=== PATIENT | female | born 1960 | race Caucasian/White ===

== ENCOUNTER 2024-11-25 11:46 | Inpatient (IN) | payer OTHER ==
--- NOTE | 2024-11-25 12:05 | ED ---
SOB HPI - General Source: patient, RN notes reviewed Mode of arrival: wheelchair Limitations: no limitations <Rose Bruce - Last Filed: 11/25/24 12:03> - General Source: patient, RN notes reviewed Mode of arrival: wheelchair Limitations: no limitations <Harley Doss - Last Filed: 11/25/24 15:19> - General Chief Complaint: Shortness of Breath Stated Complaint: SOB Time Seen by Provider: 11/25/24 12:04 - History of Present Illness Initial Comments: Quick note: 64-year-old female presented to the ER for evaluation of shortness of breath. She states this has been ongoing for the past 2 weeks. Patient does not typically wear oxygen at home. Patient denies any chest pain, dizziness or lightheadedness. No fevers, peripheral edema or cough. (Rose Bruce) Patient is a 64-year-old female presenting to the emergency department with concerns with difficulty breathing. Onset of symptoms was 2 weeks ago. Patient was visiting the hospital and believes she caught something there. Patient is a smoker however stopped when her symptoms started 2 weeks ago. Patient does have cough with green sputum. No fever. (Harley Doss) - Related Data Allergies Allergy/AdvReac Type Severity Reaction Status Date / Time No Known Allergies Allergy Verified 11/25/24 11:52 Review of Systems ROS Other: All systems not noted in ROS Statement are negative. <Rose Bruce - Last Filed: 11/25/24 12:03> ROS Other: All systems not noted in ROS Statement are negative. Constitutional: Denies: fever, chills Eyes: Denies: eye pain ENT: Denies: ear pain Respiratory: Reports: as per HPI, cough, dyspnea Endocrine: Reports: fatigue Musculoskeletal: Denies: back pain Neurological: Denies: weakness <Harley Doss - Last Filed: 11/25/24 15:19> ROS Statement: Those systems with pertinent positive or pertinent negative responses have been documented in the HPI. Past Medical History Past Medical History: No Reported History History of Any Multi-Drug Resistant Organisms: None Reported Past Surgical History: No Surgical Hx Reported Past Psychological History: No Psychological Hx Reported Smoking Status: Former smoker Past Alcohol Use History: None Reported Past Drug Use History: Marijuana <Rose Bruce - Last Filed: 11/25/24 12:03> General Exam Limitations: no limitations <Rose Bruce - Last Filed: 11/25/24 12:03> Limitations: no limitations General appearance: alert Head exam: Present: normocephalic Eye exam: Present: normal appearance Neck exam: Present: normal inspection Respiratory exam: Present: wheezes, decreased breath sounds Cardiovascular Exam: Present: normal rhythm, tachycardia GI/Abdominal exam: Present: soft. Absent: tenderness Extremities exam: Present: normal inspection. Absent: pedal edema, calf t enderness Neurological exam: Present: alert Psychiatric exam: Present: normal affect, normal mood Skin exam: Present: normal color <Harley Doss - Last Filed: 11/25/24 15:19> - General Exam Comments Initial Comments: Visual Physical Exam Vital signs reviewed General: Well-appearing, nontoxic, Mild conversational dyspnea Head: Normocephalic, atraumatic Eyes: PERRLA, EOMI ENT: Airway patent Chest: Nonlabored breathing Skin: No visual rash, normal skin tone Neuro: Alert and oriented 3 Musculoskeletal: No gross abnormalities (Rose Bruce) Course Vital Signs 11/25/24 11/25/24 11/25/24 11:48 11:52 12:58 Temperature 97.7 F Pulse Rate 116 H 91 Respiratory 22 Rate Blood Pressure 133/84 O2 Sat by Pulse 86 L 94 L Oximetry 11/25/24 11/25/24 13:10 13:33 Temperature 97.7 F Pulse Rate 92 107 H Respiratory 20 Rate Blood Pressure 128/84 O2 Sat by Pulse 93 L Oximetry Medical Decision Making <Rose Bruce - Last Filed: 11/25/24 12:03> - Lab Data Result diagrams: 11/25/24 12:12 11/25/24 12:12 <Harley Doss - Last Filed: 11/25/24 15:19> - Medical Decision Making I performed the quick note portion of this chart. Electronically signed by Rose Bruce PA-C (Rose Bruce) EKG interpreted by myself shows sinus tachycardia with a rate of 114. Left axis. Q wave in lead V2. No acute ST change. There is concern for potential sepsis diagnosed at 1:45 PM. Blood culture, lactic acid, IV antibiotics have all been ordered. Was pt. sent in by a medical professional or institution ([facility], [employer], urgent care, hospital, or penitentiary...) When possible be specific @ -No Did you speak to anyone other than the patient for history (EMS, parent, family, police, friend...)? What history was obtained from this source @ -No Did you review nursing and triage notes (agree or disagree)? Why? @ -I reviewed and agree with nursing and triage notes Were old charts reviewed (outside hosp., previous admission, EMS record, old EKG, old radiological studies, urgent care reports/EKG's, penitentiary records)? Report findings @ -No old charts were reviewed Differential Diagnosis (chest pain, altered mental status, abdominal pain women, abdominal pain men, vaginal bleeding, weakness, fever, dyspnea, syncope, headache, dizziness, GI bleed, back pain, seizure, CVA, palpatations, mental health, musculoskeletal)? @ -Differential Dyspnea: Coronary syndrome, arrhythmia, tamponade, asthma, COPD, pulmonary embolism, pneumonia, pneumothorax, pulmonary effusion, anaphylaxis, diabetic ketoacidosis, flailed chest, pulmonary contusion, diaphragmatic rupture, anemia, n euromuscular, this is not meant to be an all-inclusive list. EKG interpreted by me (3pts min.). @ -As above X-rays interpreted by me (1pt min.). @ -Chest x-ray shows left lower lung nodule, questionable effusion CT interpreted by me (1pt min.). @ -CT scan of the chest negative for pulmonary embolism. There is left basilar opacities U/S interpreted by me (1pt. min.). @ -None done What testing was considered but not performed or refused? (CT, X-rays, U/S, labs)? Why? @ -None What meds were considered but not given or refused? Why? @ -None Did you discuss the management of the patient with other professionals (professionals i.e. [facility], [employer], lab, RT, psych nurse, high school social science teacher, manager garden, teacher, gunnery/ordnance officer, catalytic case operator)? Give summary @ -Case discussed with Dr. Garcia who will admit covering hospital call Was smoking cessation discussed for >3mins.? @ -No Was critical care preformed (if so, how long)? @ -31 minutes critical care time Were there social determinants of health that impacted care today? How? (Homelessness, low income, unemployed, alcoholism, drug addiction, t ransportation, low edu. Level, literacy, decrease access to med. care, nursing home, rehab)? @ -No Was there de-escalation of care discussed even if they declined (Discuss DNR or withdrawal of care, Hospice)? DNR status @ -No What co-morbidities impacted this encounter? (DM, HTN, Smoking, COPD, CAD, Cance r, CVA, ARF, Chemo, Hep., AIDS, mental health diagnosis, sleep apnea, morbid obesity)? @ -History of prolonged tobacco use Was patient admitted / discharged? Hospital course, mention meds given and r oute, prescriptions, significant lab abnormalities, going to OR and other pertinent info. @ -Patient presents with dyspnea and hypoxia. CT scan has lung nodules concerning for possible infectious versus other. Patient will be admitted with IV antibiotics and pulmonary consult. Admission orders written. Patient reevaluated and updated. Undiagnosed new problem with uncertain prognosis? @ -No Drug Therapy requiring intensive monitoring for toxicity (Heparin, Nitro, Insulin, Cardizem)? @ -No Were any procedures done? @ -No Diagnosis/symptom? @ -Pneumonia, hypoxia Acute, or Chronic, or Acute on Chronic? @ -Acute, acute Uncomplicated (without systemic symptoms) or Complicated (systemic symptoms)? @ -Complicated with hypoxia Side effects of treatment? @ -No Exacerbation, Progression, or Severe Exacerbation? @ -No Poses a threat to life or bodily function? How? (Chest pain, USA, NC, pneumonia, PE, COPD, DKA, ARF, appy, cholecystitis, CVA, Diverticulitis, Homicidal, Suicidal, threat to staff... and all critical care pts) @ -Threat to pulmonary function (Harley Doss) - Lab Data Lab Results 11/25/24 11/25/24 11/25/24 Range/Units 12:12 12:12 12:12 WBC 6.5 (3.8-10.6) k/uL RBC 5.81 H (3.80-5.40) m/uL Hgb 17.7 H (11.4-16.0) gm/dL Hct 55.9 H (34.0-46.0) % MCV 96.2 (80.0-100.0) fL MCH 30.4 (25.0-35.0) pg MCHC 31.6 (31.0-37.0) g/dL RDW 13.3 (11.5-15.5) % Plt Count 357 (150-450) k/uL MPV 8.2 Neutrophils % 77 % Lymphocytes % 14 % Monocytes % 6 % Eosinophils % 1 % Basophils % 0 % Neutrophils # 5.0 (1.3-7.7) k/uL Lymphocytes # 0.9 L (1.0-4.8) k/uL Monocytes # 0.4 (0-1.0) k/uL Eosinophils # 0.1 (0-0.7) k/uL Basophils # 0.0 (0-0.2) k/uL PT 11.6 (10.0-12.5) sec INR 1.1 (<1.2) APTT 22.9 (22.0-30.0) sec D-Dimer 1.09 H (<0.60) mg/L FEU Sodium 137 (137-145) mmol/L Potassium 4.1 (3.5-5.1) mmol/L Chloride 100 (98-107) mmol/L Carbon Dioxide 24 (22-30) mmol/L Anion Gap 13 mmol/L BUN 13 (7-17) mg/dL Creatinine 0.78 (0.52-1.04) mg/dL Est GFR (CKD-EPI)AfAm >90 (>60 ml/min/1.73 sqM) Est GFR (CKD-EPI)NonAf 82 (>60 ml/min/1.73 sqM) Glucose 149 H (74-99) mg/dL Plasma Lactic Acid Álvaro (0.7-2.0) mmol/L Calcium 9.7 (8.4-10.2) mg/dL Total Bilirubin 0.9 (0.2-1.3) mg/dL AST 31 (14-36) U/L ALT 35 H (4-34) U/L Alkaline Phosphatase 86 (38-126) U/L Troponin I (0.000-0.034) ng/mL NT-Pro-B Natriuret Pep 99 pg/mL Total Protein 7.6 (6.3-8.2) g/dL Albumin 4.1 (3.5-5.0) g/dL Influenza Type A (PCR) (Not Detectd) Influenza Type B (PCR) (Not Detectd) RSV (PCR) (Not Detectd) SARS-CoV-2 (PCR) (Not Detectd) 11/25/24 11/25/24 11/25/24 Range/Units 12:12 12:12 12:38 WBC (3.8-10.6) k/uL RBC (3.80-5.40) m/uL Hgb (11.4-16.0) gm/dL Hct (34.0-46.0) % MCV (80.0-100.0) fL MCH (25.0-35.0) pg MCHC (31.0-37.0) g/dL RDW (11.5-15.5) % Plt Count (150-450) k/uL MPV Neutrophils % % Lymphocytes % % Monocytes % % Eosinophils % % Basophils % % Neutrophils # (1.3-7.7) k/uL Lymphocytes # (1.0-4.8) k/uL Monocytes # (0-1.0) k/uL Eosinophils # (0-0.7) k/uL Basophils # (0-0.2) k/uL PT (10.0-12.5) sec INR (<1.2) APTT (22.0-30.0) sec D-Dimer (<0.60) mg/L FEU Sodium (137-145) mmol/L Potassium (3.5-5.1) mmol/L Chloride (98-107) mmol/L Carbon Dioxide (22-30) mmol/L Anion Gap mmol/L BUN (7-17) mg/dL Creatinine (0.52-1.04) mg/dL Est GFR (CKD-EPI)AfAm (>60 ml/min/1.73 sqM) Est GFR (CKD-EPI)NonAf (>60 ml/min/1.73 sqM) Glucose (74-99) mg/dL Plasma Lactic Acid Álvaro 1.1 (0.7-2.0) mmol/L Calcium (8.4-10.2) mg/dL Total Bilirubin (0.2-1.3) mg/dL AST (14-36) U/L ALT (4-34) U/L Alkaline Phosphatase (38-126) U/L Troponin I <0.012 (0.000-0.034) ng/mL NT-Pro-B Natriuret Pep pg/mL Total Protein (6.3-8.2) g/dL Albumin (3.5-5.0) g/dL Influenza Type A (PCR) Not Detected (Not Detectd) Influenza Type B (PCR) Not Detected (Not Detectd) RSV (PCR) Not Detected (Not Detectd) SARS-CoV-2 (PCR) Not Detected (Not Detectd) Critical Care Time Critical Care Time: Yes <Harley Doss - Last Filed: 11/25/24 15:19> Disposition <Rose Bruce - Last Filed: 11/25/24 12:03> Is patient prescribed a controlled substance at d/c from ED?: No Time of Disposition: 15:18 <Harley Doss - Last Filed: 11/25/24 15:19> Clinical Impression: Pneumonia Disposition: ADMITTED IP TO THIS HOSP Condition: Serious Referrals: [facility] [NON-STAFF] - 1-2 days (Contact a primary care office to become established with a provider. ) [facility] [NON-STAFF] - 1-2 days Forms: Area PCPs
[2024-11-25 12:28] LABS: Basophils % (A) 0 %; Eosinophils # (A) 0.1 k/uL (0-0.7); Eosinophils % (A) 1 %; HGB 17.7 gm/dL (11.4-16.0); Lymphocytes # (A) 0.9 k/uL (1.0-4.8); Lymphocytes % (A) 14 %; MCH 30.4 pg (25.0-35.0); MCHC 31.6 g/dL (31.0-37.0); MCV 96.2 fL (80.0-100.0); Mean Platelet Volume 8.2; Monocytes # (A) 0.4 k/uL (0-1.0); Monocytes % (A) 6 %; Neutrophils % (A) 77 %; Platelet Count 357 k/uL (150-450); RBC 5.81 m/uL (3.80-5.40); RDW 13.3 % (11.5-15.5); WBC 6.5 k/uL (3.8-10.6)
[2024-11-25 12:43] LABS: HCT 55.9 % (34.0-46.0)
--- NOTE | 2024-11-25 12:55 | XR ---
EXAMINATION TYPE: XR chest 2V DATE OF EXAM: 11/25/2024 12:36 PM COMPARISON: None. CLINICAL INDICATION: Female, 64 years old with history of difficulty breathing, TECHNIQUE: Frontal and lateral views of the chest are obtained. FINDINGS: There is a new small to tiny left pleural effusion. There is 8 mm nodule in the peripheral left lower lung. Consider chest CT to further evaluate. Right lung is clear. The cardiac silhouette size is within normal limits. The osseous structures are intact. IMPRESSION: As above. [facility], , 11/25/2024 12:52 PM
[2024-11-25] MEDS: IPRATROPIUM-ALBUTEROL 3 ML NEB INHALATION STA ×2 (12:56→13:24)
[2024-11-25 13:01] LABS: ALT 35 U/L (4-34); AST 31 U/L (14-36); African American GFR (CKD) >90 (>60 ml/min/1.73 sqM); Albumin 4.1 g/dL (3.5-5.0); Alkaline Phosphatase 86 U/L (38-126); Anion Gap 13 mmol/L; Blood Urea Nitrogen 13 mg/dL (7-17); Calcium 9.7 mg/dL (8.4-10.2); Carbon Dioxide 24 mmol/L (22-30); Chloride 100 mmol/L (98-107); Glucose 149 mg/dL (74-99); Non-African American GFR(CKD) 82 (>60 ml/min/1.73 sqM); Potassium 4.1 mmol/L (3.5-5.1); Sodium 137 mmol/L (137-145); Total Bilirubin 0.9 mg/dL (0.2-1.3); Total Protein 7.6 g/dL (6.3-8.2)
[2024-11-25 13:09] LABS: NT-Pro-B-Type Natriuretic Pept 99 pg/mL
[2024-11-25 13:10] LABS: INR 1.1 (<1.2); Partial Thromboplastin Time 22.9 sec (22.0-30.0); Prothrombin Time 11.6 sec (10.0-12.5)
[2024-11-25 13:16] LABS: Influenza A Not Detected (Not Detectd); Influenza B Not Detected (Not Detectd); RSV Not Detected (Not Detectd)
[2024-11-25] MEDS: methylPREDNISolone SOD SUCCI 125 MG/2 ML VIAL IV STA (13:38)
[2024-11-25] MEDS: AZITHROMYCIN 500 MG in SODIUM CHLORIDE 0.9% 250 ML IVPB SCH (14:27)
--- NOTE | 2024-11-25 14:46 | CT ---
EXAMINATION TYPE: CT angio chest DATE OF EXAM: 11/25/2024 COMPARISON: CLINICAL INDICATION: Female, 64 years old with history of sean; [facility], TECHNIQUE: CTA scan of the thorax is indicated the department CT protocol. IV contrast was administered. MIPS im ages were generated and reviewed. 3-D processing was performed. CT DLP: mGycm CT CTDI: mGy Automated exposure control for dose reduction was used. FINDINGS: LUNGS: There are multiple small partially consolidative opacities in the subpleural parenchymal left lung base the largest of which is approximately 19 mm in size. There is a densely calcified granuloma in the left lung base as well and there are calcified left hilar lymph nodes indicating prior granul omatous disease. The right lung is clear. There is no pleural effusion or pneumothorax. MEDIASTINUM: There is satisfactory enhancement of the pulmonary artery and its branches, there is no CT evidence for pulmonary embolism. There are no greater than 1 cm hilar or mediastinal lymph nodes. No pericardial effusion is seen. OTHER: No additional significant abnormality is seen. IMPRESSION: 1. NO EVIDENCE OF PULMONARY EMBOLISM. 2. MULTIPLE SMALL FOCAL OPACITIES IN THE LEFT LUNG BASE POSTERIORLY WHICH COULD BE INFECTIOUS OR NEOP LASTIC AND SHORT TERM FOLLOW-UP IS RECOMMENDED. [facility], , 11/25/2024 2:44 PM
[2024-11-25] MEDS ORDERED: IPRATROPIUM-ALBUTEROL 3 ML NEB INHALATION PRN (15:19)
[2024-11-25] MEDS ORDERED: PNEUMONIA PROTOCOL UTILIZED 1 EACH MISC PO PRN (15:19)
[2024-11-25] MEDS: IPRATROPIUM-ALBUTEROL 3 ML NEB INHALATION SCH (16:22)
[2024-11-25] MEDS: SODIUM CHLORIDE 0.9% 1,000 ML IV SCH (17:05)
[2024-11-25] MEDS: methylPREDNISolone SOD SUCCI 125 MG/2 ML VIAL IV SCH (17:52)
--- NOTE | 2024-11-25 21:27 | P.HPIM ---
History of Present Illness This is a pleasant 64 years old female with no significant past medical history. Presents because of worsening dyspnea over 2 weeks associated with cough with phlegm now becoming green but no significant chest pain She denies urinary symptoms and no abdominal pain vomiting. She has some diarrhea and decreased appetite over the last 2 weeks she was drinking only orange juice that is what she is having bowel movement and diarrhea about. No headache dizziness weakness numbness, no fall. She felt chills at home but no documented fever. She quit smoking about 2 weeks ago without specification how much she smoked no alcohol or illicit drugs. Known admission she was tachycardic with heart rate is 107 and tachypneic around 20, she was saturating 91 on 4 L oxygen via nasal cannula CBC is unremarkable except for hemoglobin elevated at 17, unremarkable BMP, liver enzymes, INR, troponin. My virus Please l D-dimer at 1.0. CT of the chest was negative for PE but showing left lung opacity with posteriorly mainly. Suspicious for pneumonia versus metastatic disease EKG showing sinus tachycardia at [address]-T changes, proBNP is 99. She started on Solu-Medrol and ceftriaxone and Zithromax and normal saline 100 mL/h Review of Systems Review of systems CONSTITUTIONAL: No fever, no malaise, no fatigue. HEENT: No recent visual problems or hearing problems. Denied any sore throat. CARDIOVASCULAR: No orthopnea, PND, no palpitations, no syncope. PULMONARY: No chest wall tenderness, no hemoptysis. GASTROINTESTINAL: No diarrhea, no nausea, no vomiting, no abdominal pain. Normoa ctive bowel sounds. NEUROLOGICAL: No headaches, no weakness, no numbness. HEMATOLOGICAL: Denies any bleeding or petechiae. GENITOURINARY: Denies any burning micturition, frequency, or urgency. MUSCULOSKELETAL/RHEUMATOLOGICAL: Denies any joint pain, swelling, or any muscle pain. ENDOCRINE: Denies any polyuria or polydipsia. Past Medical History Past Medical History: No Reported History History of Any Multi-Drug Resistant Organisms: None Reported Past Surgical History: No Surgical Hx Reported Past Psychological History: No Psychological Hx Reported Smoking Status: Former smoker Past Alcohol Use History: None Reported Past Drug Use History: Marijuana Medications and Allergies Home Medications Medication Instructions Recorded Confirmed Type No Known Home Medications 11/25/24 11/25/24 History Allergies Allergy/AdvReac Type Severity Reaction Status Date / Time latex Allergy Itching Verified 11/25/24 16:44 Physical Exam Vitals: Vital Signs Temp Pulse Resp BP Pulse Ox 11/25/24 21:05 90 16 123/82 91 L 11/25/24 19:58 96 11/25/24 19:47 92 11/25/24 19:13 91 L 11/25/24 17:07 98.2 F 89 20 121/79 91 L 11/25/24 16:32 90 11/25/24 16:24 90 11/25/24 13:33 97.7 F 107 H 20 128/84 93 L 11/25/24 13:10 92 11/25/24 12:58 91 11/25/24 11:52 94 L 11/25/24 11:48 97.7 F 116 H 22 133/84 86 L Intake and Output 11/25/24 11/25/24 11/25/24 06:59 14:59 22:59 Other: Weight 108.862 kg GENERAL: The patient is alert and oriented x3, not in any acute distress. Well developed, well nourished. HEENT: Pupils are round and equally reacting to light. EOMI. No scleral icterus. No conjunctival pallor. Normocephalic, atraumatic. No pharyngeal erythema. No thyromegaly. CARDIOVASCULAR: S1 and S2 present. No murmurs, rubs, or gallops. -PULMONARY: no wheezing , no crackles. Limited air entry on both sides ABDOMEN: Soft, nontender, nondistended, normoactive bowel sounds. No palpable organomegaly. MUSCULOSKELETAL: No joint swelling or deformity. EXTREMITIES: No cyanosis, clubbing, or pedal edema. NEUROLOGICAL: Gross neurological examination did not reveal any focal deficits. SKIN: No rashes. no petechiae. Results CBC & Chem 7: 11/25/24 12:12 11/25/24 12:12 Labs: Abnormal Lab Results - Last 24 Hours (Table) 11/25/24 11/25/24 11/25/24 Range/Units 12:12 12:12 12:12 RBC 5.81 H (3.80-5.40) m/uL Hgb 17.7 H (11.4-16.0) gm/dL Hct 55.9 H (34.0-46.0) % Lymphocytes # 0.9 L (1.0-4.8) k/uL D-Dimer 1.09 H (<0.60) mg/L FEU Glucose 149 H (74-99) mg/dL ALT 35 H (4-34) U/L Assessment and Plan Assessment: Acute COPD exacerbation Left lower lobe pneumonia versus metastatic disease Acute hypoxic respiratory failure Decreased appetite and diarrhea causing dehydration Plan: Continue with IV Solu-Medrol 60 mg On ceftriaxone and Zithromax Normal saline at 100 mL/h Pulmonary team consult Labs and medication were reviewed.. Continue same treatment. Continue with symptomatic treatment. Resume home medication. Monitor labs and vitals. DVT and GI prophylaxis. Further recommendations as per clinical course of the patient DVT prophylaxis: Subcutaneous heparin GI Prophylaxis: Pepcid PT/OT: Pending Prognosis is guarded
[2024-11-25] MEDS: HEPARIN SODIUM,PORCINE 5,000 UNIT/ML 1 ML VIAL SQ SCH (23:36)
--- NOTE | 2024-11-26 05:34 | XR ---
EXAMINATION TYPE: XR chest 2V DATE OF EXAM: 11/26/2024 5:14 AM COMPARISON: Chest x-ray and CT chest from 1 day earlier CLINICAL INDICATION: Female, 64 years old with history of pneumonia, TECHNIQUE: Frontal and lateral views of the chest are obtained. FINDINGS: Persistent peripheral left basilar opacity and near 1 cm calcified nodule or benign granulo ma. Right lung remains clear. The cardiac silhouette size remains within normal limits. The osseous structures are intact. IMPRESSION: Persistent patchy peripheral left basilar acute infiltrate and/or atelectasis. [facility], , 11/26/2024 5:31 AM
--- NOTE | 2024-11-26 07:40 | P.PN ---
Subjective This is a pleasant 64 years old female with no significant past medical history. Presents because of worsening dyspnea over 2 weeks associated with cough with phlegm now becoming green but no significant chest pain She denies urinary symptoms and no abdominal pain vomiting. She has some diarrhea and decreased appetite over the last 2 weeks she was drinking only orange juice that is what she is having bowel movement and diarrhea about. No headache dizziness weakness numbness, no fall. She felt chills at home but no documented fever. She quit smoking about 2 weeks ago without specification how much she smoked no alcohol or illicit drugs. Known admission she was tachycardic with heart rate is 107 and tachypneic around 20, she was saturating 91 on 4 L oxygen via nasal cannula CBC is unremarkable except for hemoglobin elevated at 17, unremarkable BMP, liver enzymes, INR, troponin. My virus Please l D-dimer at 1.0. CT of the chest was negative for PE but showing left lung opacity with posteriorly mainly. Suspicious for pneumonia versus metastatic disease EKG showing sinus tachycardia at [address]-T changes, proBNP is 99. She started on Solu-Medrol and ceftriaxone and Zithromax and normal saline 100 mL/h 11/26 Patient feels better today. She is mildly tachypneic while she is at rest. Currently she is on 4 L oxygen via nasal cannula saturating above 91%. Tachycardia improved. Labs from today are pending. She is on maintenance of Solu-Medrol 60 mg ceftriaxone Zithromax and normal saline at 100 mL/h. Patient informed about the diagnosis of the left lateral pneumonia with the suspicion of cancer explained for him she verbalized understanding acceptance. 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 Repeat chest x-ray from today showing similar findings but some improvement in the area of consolidation. Review of systems CONSTITUTIONAL: No fever, no malaise, no fatigue. HEENT: No recent visual problems or hearing problems. Denied any sore throat. CARDIOVASCULAR: No orthopnea, PND, no palpitations, no syncope. HEMATOLOGICAL: Denies any bleeding or petechiae. GENITOURINARY: Denies any burning micturition, frequency, or urgency. MUSCULOSKELETAL/RHEUMATOLOGICAL: Denies any joint pain, swelling, or any muscle pain. ENDOCRINE: Denies any polyuria or polydipsia. Active Medications Generic Name Dose Route Start Last Admin Trade Name Freq PRN Reason Stop Dose Admin Albuterol/Ipratropium 3 ml 11/25/24 16:00 11/25/24 19:47 Ipratropium-Albuterol 3 Ml Neb INHALATION 3 ml RT-QID JORY Administration Albuterol/Ipratropium 3 ml 11/25/24 15:19 Ipratropium-Albuterol 3 Ml Neb INHALATION RT-Q4H PRN shortness of breath Famotidine 20 mg 11/26/24 09:00 Famotidine 20 Mg/2 Ml Vial IV Q12HR JORY Heparin Sodium (Porcine) 5,000 unit 11/25/24 22:00 11/25/24 23:36 Heparin Sodium,Porcine 5,000 Unit/Ml 1 Ml Vial SQ 5,000 unit Q12HR JORY Administration Azithromycin 500 mg/ Sodium 250 mls @ 250 mls/hr 11/25/24 14:00 11/25/24 14:27 Chloride IVPB 11/27/24 09:59 250 mls/hr DAILY JORY Administration Protocol Sodium Chloride 1,000 mls @ 100 mls/hr 11/25/24 15:30 11/26/24 00:39 Saline 0.9% IV 100 mls/hr .Q10H JORY Administration Ceftriaxone Sodium 2 gm/ 50 mls @ 100 mls/hr 11/26/24 16:00 Sodium Chloride IVPB 11/29/24 16:29 Q24H JORY Protocol Methylprednisolone Sodium Succinate 60 mg 11/25/24 18:00 11/26/24 05:45 Methylprednisolone Sod Succi 125 Mg/2 Ml Vial IV 60 mg Q6HR JORY Administration Miscellaneous Information 1 each 11/25/24 15:19 Pneumonia Protocol Utilized 1 Each Misc PO ONCE PRN Per Protocol Objective - Vital Signs Vital signs: Vital Signs Temp 98.2 F 11/25/24 17:07 Pulse 55 L 11/26/24 05:37 Resp 16 11/26/24 05:37 BP 141/82 11/26/24 05:37 Pulse Ox 91 L 11/26/24 05:37 FiO2 Intake & Output 11/25/24 11/26/24 11/26/24 18:59 06:59 18:59 Weight 108.862 kg - Exam GENERAL: The patient is alert and oriented x3, not in any acute distress. Well developed, well nourished. HEENT: Pupils are round and equally reacting to light. EOMI. No scleral icterus. No conjunctival pallor. Normocephalic, atraumatic. No pharyngeal erythema. No thyromegaly. CARDIOVASCULAR: S1 and S2 present. No murmurs, rubs, or gallops. -PULMONARY: Chest is clear to auscultation, bilateral expiratory wheezing which is improving, no crackles. ABDOMEN: Soft, nontender, nondistended, normoactive bowel sounds. No palpable organomegaly. MUSCULOSKELETAL: No joint swelling or deformity. EXTREMITIES: No cyanosis, clubbing, or pedal edema. NEUROLOGICAL: Gross neurological examination did not reveal any focal deficits. SKIN: No rashes. no petechiae. - Labs CBC & Chem 7: 11/25/24 12:12 11/25/24 12:12 Labs: Abnormal Lab Results - Last 24 Hours (Table) 11/25/24 11/25/24 11/25/24 Range/Units 12:12 12:12 12:12 RBC 5.81 H (3.80-5.40) m/uL Hgb 17.7 H (11.4-16.0) gm/dL Hct 55.9 H (34.0-46.0) % Lymphocytes # 0.9 L (1.0-4.8) k/uL D-Dimer 1.09 H (<0.60) mg/L FEU Glucose 149 H (74-99) mg/dL ALT 35 H (4-34) U/L Assessment and Plan Assessment: Acute COPD exacerbation Left lower lobe pneumonia versus metastatic disease Acute hypoxic respiratory failure Decreased appetite and diarrhea causing dehydration Plan: Continue with IV Solu-Medrol 60 mg On ceftriaxone and Zithromax Normal saline at 100 mL/h Pulmonary team consult Labs and medication were reviewed.. Continue same treatment. Continue with symptomatic treatment. Resume home medication. Monitor labs and vitals. DVT and GI prophylaxis. Further recommendations as per clinical course of the patient DVT prophylaxis: Subcutaneous heparin GI Prophylaxis: Pepcid PT/OT: Pending Prognosis is guarded
[2024-11-26] MEDS: FAMOTIDINE 20 MG/2 ML VIAL IV SCH (08:38)
[2024-11-26 08:39] LABS: Basophils # (A) 0.01 X 10*3/uL (0.00-0.10); Basophils % (A) 0.2 %; Eosinophils # (A) 0 X 10*3/uL (0.04-0.35); Eosinophils % (A) 0 %; HCT 46.4 % (37.2-46.3); Lymphocytes # (A) 0.57 X 10*3/uL (0.90-5.00); Lymphocytes % (A) 9.1 %; MCH 30.6 pg (27.0-32.0); MCHC 32.3 g/dL (32.0-37.0); MCV 94.7 FL (80.0-97.0); Mean Platelet Volume 10.5 FL (9.5-12.2); Monocytes # (A) 0.15 X 10*3/uL (0.20-1.00); Monocytes % (A) 2.4 %; NRBC Per 100 WBC 0 X 10*3/uL (0.00-0.01); Neutrophils # (A) 5.52 X 10*3/uL (1.80-7.70); Platelet Count 228 X 10*3/uL (140-440); RDW 13.4 % (11.5-14.5); WBC 6.27 X 10*3/uL (4.50-10.00)
[2024-11-26 08:57] LABS: BUN/Creat Ratio 15.88 Ratio (12.00-20.00); Blood Urea Nitrogen 12.7 mg/dL (9.0-27.0); Calcium 9.1 mg/dL (8.7-10.3); Carbon Dioxide 25.4 mmol/L (21.6-31.8); Chloride 102 mmol/L (96-109); Glucose 151 mg/dL (70-110); Potassium 4.3 mmol/L (3.5-5.5); Sodium 139 mmol/L (135-145)
--- NOTE | 2024-11-26 13:27 | P.CNPUL ---
History of Present Illness Consult date: 11/26/24 Requesting physician: Tony Webster Reason for consult: dyspnea Chief complaint: Shortness of breath, palpitations History of present illness: This is a 64-year-old female patient with no primary care provider, no home medications, chronic and ongoing tobacco dependence of 50 years who presented here to the emergency room yesterday with a 2-week history of flu-like symptoms. She also was having shortness of breath cough and congestion. X-ray shows a tiny left pleural effusion. There is an 8 mm nodule in the peripheral left lower lung. Right lung is clear. CT angiogram ruled out pulmonary embolism. There is multiple small focal opacities in the left lung base posteriorly which could represent infectious or neoplastic etiologies. White count 6.2. Hemoglobin 15.0. Platelets 228. Sodium 139. Potassium 4.3. Bicarb 25. BUN 13. Creatinine 0.8. Procalcitonin negative at 0.08. Viral screen was negative. She is seen today in consultation on the regular medical floor. She is currently sitting up in bed. Awake and alert in no acute distress. She is maintaining O2 saturations in the low 90s on 5 L/min per nasal cannula. She has been afebrile. Hemodynamically stable. Review of Systems REVIEW OF SYSTEMS: CONSTITUTIONAL: Denies any recent significant weight loss or weight gain. EYES: Denies change in vision. EARS, NOSE, MOUTH, THROAT: Denies headaches, denies sore throat. CARDIOVASCULAR: Denies chest pain, palpitations or syncopal episodes. RESPIRATORY: Positive for shortness of breath, cough, congestion no hemoptysis. GASTROINTESTINAL: Denies change in appetite, denies abdominal pain GENITOURINARY: Denies hematuria, denies infections. MUSKULOSKELETAL: Denies pain, denies swelling. INTEGUMENTARY: Denies rash, denies eczema. NEUROLOGICAL: Denies recent memory loss, no recent seizure activity. PSYCHIATRIC: Denies anxiety, denies depression. HEMATOLOGIC/LYMPHATIC: Denies anemia, denies enlarged lymph nodes. Past Medical History Past Medical History: No Reported History History of Any Multi-Drug Resistant Organisms: None Reported Past Surgical History: Cholecystectomy Past Anesthesia/Blood Transfusion Reactions: No Reported Reaction Past Psychological History: No Psychological Hx Reported Smoking Status: Former smoker Past Alcohol Use History: None Reported Past Drug Use History: Marijuana Additional Drug Use History / Comment(s): Patient states stopped smoking 2 weeks ago (oct 2024) Medications and Allergies Home Medications Medication Instructions Recorded Confirmed Type No Known Home Medications 11/25/24 11/25/24 History Allergies Allergy/AdvReac Type Severity Reaction Status Date / Time latex Allergy Itching Verified 11/25/24 16:44 Physical Exam Vitals: Vital Signs Temp Pulse Pulse Resp BP BP Pulse Ox 11/26/24 12:24 97.4 F L 93 18 109/70 94 L 11/26/24 12:06 90 11/26/24 11:55 92 11/26/24 08:47 88 11/26/24 08:38 84 90 L 11/26/24 08:21 97.8 F 76 20 145/73 94 L 11/26/24 05:37 55 L 16 141/82 91 L 11/26/24 02:39 74 18 96 11/25/24 23:34 83 18 118/84 92 L 11/25/24 21:05 90 16 123/82 91 L 11/25/24 19:58 96 11/25/24 19:47 92 11/25/24 19:13 91 L 11/25/24 17:07 98.2 F 89 20 121/79 91 L 11/25/24 16:32 90 11/25/24 16:24 90 11/25/24 13:33 97.7 F 107 H 20 128/84 93 L Intake and Output 11/25/24 11/26/24 11/26/24 22:59 06:59 14:59 Other: Voiding Method Bedside Commode # Voids 1 Weight 108.862 kg GENERAL EXAM: Alert, active, pleasant 64-year-old female, on 5 L nasal cannula, comfortable in no apparent distress. HEAD: Normocephalic. EYES: Normal reaction of pupils, equal size. NOSE: Clear with pink turbinates. THROAT: No erythema or exudates. NECK: No masses, no JVD. CHEST: No chest wall deformity. LUNGS: Equal air entry with no crackles, wheeze, rhonchi or dullness. Diminished throughout CVS: S1 and S2 normal with no audible murmur, regular rhythm. ABDOMEN: No hepatosplenomegaly, normal bowel sounds, no guarding or rigidity. SPINE: No scoliosis or deformity SKIN: No rashes CENTRAL NERVOUS SYSTEM: No focal deficits, tone is normal in all 4 extremities. EXTREMITIES: There is no peripheral edema. No clubbing, no cyanosis. Peripheral pulses are intact. Results - Laboratory Findings CBC and BMP: 11/26/24 05:20 11/26/24 05:20 PT/INR, D-dimer PT 11.6 sec (10.0-12.5) 11/25/24 12:12 INR 1.1 (<1.2) 11/25/24 12:12 D-Dimer 1.09 mg/L FEU (<0.60) H 11/25/24 12:12 Abnormal lab findings: Abnormal Labs 11/25/24 11/25/24 11/25/24 12:12 12:12 12:12 RBC 5.81 H Hgb 17.7 H Hct 55.9 H Lymphocytes # 0.9 L Monocytes # Eosinophils # D-Dimer 1.09 H Glucose 149 H ALT 35 H 11/26/24 11/26/24 05:20 05:20 RBC Hgb Hct 46.4 H Lymphocytes # 0.57 L Monocytes # 0.15 L Eosinophils # 0 L D-Dimer Glucose 151 H ALT - Diagnostic Findings Chest x-ray: image reviewed CT scan - chest: image reviewed Assessment and Plan Assessment: Acute hypoxic respiratory failure secondary to an acute exacerbation of COPD Chronic and ongoing tobacco dependence of 50 years Multiple small partially consolidative opacities in the subpleural parenchymal left lung base. Suspect scarring versus neoplasm Plan: The patient was seen and evaluated Imaging, labs and medications reviewed Add DuoNeb inhalations, Symbicort Initiate Solu-Medrol Heparin for DVT prophylaxis Pepcid for GI prophylaxis Procalcitonin negative Discontinue antibiotics Titrate down the FiO2 as tolerated Recommend 3-month follow-up CT scan regarding left base abnormalities We will continue to follow and make further recommendations based on her clinical status I have personally seen and examined the patient, performed the documentation and the assessment and plan as written. Number of minutes spent on the visit: 20 Dictation was produced using [employer] dictation software. Please excuse any gr ammatical, word or spelling errors.
[2024-11-26] MEDS: SYMBICORT 160-4.5 MCG INHALER INHALATION SCH (19:08)
--- NOTE | 2024-11-27 12:53 | P.PN ---
Subjective Progress Note Date: 11/27/24 This is a 64-year-old female patient with no primary care provider, no home medications, chronic and ongoing tobacco dependence of 50 years who presented here to the emergency room yesterday with a 2-week history of flu-like symptoms. She also was having shortness of breath cough and congestion. X-ray shows a tiny left pleural effusion. There is an 8 mm nodule in the peripheral left lower lung. Right lung is clear. CT angiogram ruled out pulmonary embolism. There is multiple small focal opacities in the left lung base posteriorly which could represent infectious or neoplastic etiologies. White count 6.2. Hemoglobin 15.0. Platelets 228. Sodium 139. Potassium 4.3. Bicarb 25. BUN 13. Creatinine 0.8. Procalcitonin negative at 0.08. Viral screen was negative. She is seen today in consultation on the regular medical floor. She is currently sitting up in bed. Awake and alert in no acute distress. She is maintaining O2 saturations in the low 90s on 5 L/min per nasal cannula. She has been afebrile. Hemodynamically stable. The patient is seen today November 27, 2024 in follow-up on the regular medical floor. She is currently sitting up in bed. Awake and alert in no acute distr ess. She denies any worsening shortness of breath, cough or congestion. She is maintaining O2 saturations in the 90s on 4 L/min per nasal cannula. She is afebrile. Hemodynamically stable. Blood cultures revealed no growth. Sputum culture revealed no growth. Procalcitonin negative at 0.08. She is having some issues with vague chest discomfort. Troponin negative. Solu-Medrol. Heparin for DVT prophylaxis. Pepcid for GI prophylaxis. Objective - Vital Signs Vital signs: Vital Signs Temp 97.6 F 11/27/24 11:32 Pulse 80 11/27/24 12:41 Resp 16 11/27/24 11:32 BP 144/81 11/27/24 11:32 Pulse Ox 91 L 11/27/24 11:32 FiO2 Intake & Output 11/26/24 11/27/24 11/27/24 18:59 06:59 18:59 Intake Total 960 540 240 Balance 960 540 240 Weight 108.862 kg Intake: Oral 960 540 240 Other: Voiding Method Bedside Commode Bedside Commode Bedside Commode # Voids 2 1 # Bowel Movements 1 - Exam GENERAL EXAM: Alert, pleasant 64-year-old female, sitting up in bed, on 4 L nasal cannula, fairly comfortable in no apparent distress. HEAD: Normocephalic. EYES: Normal reaction of pupils, equal size. NOSE: Clear with pink turbinates. THROAT: No erythema or exudates. NECK: No masses, no JVD. CHEST: No chest wall deformity. LUNGS: Equal air entry with few scattered rhonchi. CVS: S1 and S2 normal with no audible murmur, regular rhythm. ABDOMEN: No hepatosplenomegaly, normal bowel sounds, no guarding or rigidity. SPINE: No scoliosis or deformity SKIN: No rashes CENTRAL NERVOUS SYSTEM: No focal deficits, tone is normal in all 4 extremities. EXTREMITIES: There is no peripheral edema. No clubbing, no cyanosis. Peripheral pulses are intact. - Labs CBC & Chem 7: 11/26/24 05:20 11/26/24 05:20 Labs: Microbiology - Last 24 Hours (Table) 11/25/24 12:08 Blood Culture - Preliminary Blood 11/25/24 21:05 Gram Stain - Preliminary Sputum Assessment and Plan Assessment: Acute hypoxic respiratory failure secondary to an acute exacerbation of COPD Chronic and ongoing tobacco dependence of 50 years Multiple small partially consolidative opacities in the subpleural parenchymal left lung base. Suspect scarring versus neoplasm Atypical chest pain, troponin negative x 2 Plan: The patient was seen and evaluated Labs and medications reviewed Cleared for discharge from the pulmonary standpoint Cardiology consulted to address chest discomfort Evaluate for possible home oxygen Continue Symbicort, albuterol Complete a prednisone taper Educated regarding complete smoking cessation Recommend 3-month follow-up CT scan regarding left base abnormalities Follow up in our office in 1 week This patient was seen independently by the pulmonary nurse practitioner addressing pulmonary issues I have personally seen and examined the patient, performed the documentation and the assessment and plan as written. Number of minutes spent on the visit: 24 Dictation was produced using [employer] dictation software. Please excuse any grammatical, word or spelling errors.
--- NOTE | 2024-11-27 15:18 | P.CRDCN ---
History of Present Illness Consult date: 11/27/24 Consult reason: chest pain Chief complaint: Chest pain History of present illness: History of present illness: Patient is a pleasant 64-year-old female with no significant past medical history who presented with complaints of worsening shortness of breath. 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 She admits she has not been to a doctor in the past 30 years. She does not take any medications at home. She said on F ebruary 15 she began having upper respiratory-like infections and was concerned she actually had COVID. The symptoms lasted for 2 weeks and have not been improving so therefore she presented to the emergency department. She then developed some chest pain last night and again this morning and therefore cardiology was consulted. Troponin was negative on admission and negative x 1 thus far today. BNP 99. EKG shows sinus bradycardia 58 bpm, left anterior fascicular block. Chest x-ray does show left basilar acute infiltration. Pulmonary is following for possible lung mass of the left lower lobe versus scarring and recommends repeat CAT scan in 3 months. This morning she has been having more chest pressure and tinges of pain. She did have a significant amount of gas earlier and felt better with this. However, chest pain and pressure is back. She describes it as a "bad heartburn "she denies having any prior cardiac workup. REVIEW OF SYSTEMS: No fever or chills. No cough or expectoration. No diaphoresis. Patient denies headache, dizziness, blurred vision, double vision. Patient denies any stomach discomfort. No nausea, vomiting. No hematochezia. No hematemesis. Denies any black stools or blood in his stools. Denies dysuria or hematuria. No muscle weakness or numbness. Reports chest pain and pressure. Reports dyspnea. PHYSICAL EXAMINATION: This is a 64-year-old female in no apparent distress at the time of my examination. HEENT: Head is atraumatic, normocephalic. Pupils are equal, round. Sclerae anicteric. Conjunctivae are clear. Mucous membranes of the mouth are moist. Neck is supple. There is no jugular venous distention. No carotid bruit is heard. CHEST EXAMINATION: Lungs are clear to auscultation. No chest wall tenderness is noted on palpation or with deep breathing. HEART EXAMINATION: Heart regular rate and rhythm. S1, S2 heard. No murmurs, gallops or rub. ABDOMEN: Soft, nontender. Bowel sounds are heard. EXTREMITIES: 2+ peripheral pulses with no evidence of peripheral edema and no calf tenderness noted. NEUROLOGIC EXAMINATION: Patient is awake, alert and oriented x3. IMPRESSION AND PLAN: COPD exacerbation Tobacco use Consolidative opacities left lung base concerning for scarring versus neoplasm Chest pain, atypical PLAN: We will check repeat EKG and trend troponin. If these are unremarkable, would recommend further workup as an outpatient with echo and stress test. Okay to discharge from a cardiac standpoint if she remains stable. Follow-up in 1-2 weeks in clinic. I am dictating on behalf of Dr. Abdoul Vick's history/physical and assessment/plan. Past Medical History Past Medical History: No Reported History History of Any Multi-Drug Resistant Organisms: None Reported Past Surgical History: Cholecystectomy Past Anesthesia/Blood Transfusion Reactions: No Reported Reaction Past Psychological History: No Psychological Hx Reported Smoking Status: Former smoker Past Alcohol Use History: None Reported Past Drug Use History: Marijuana Additional Drug Use History / Comment(s): Patient states stopped smoking 2 weeks ago (oct 2024) Medications and Allergies Home Medications Medication Instructions Recorded Confirmed Type No Known Home Medications 11/25/24 11/25/24 History Allergies Allergy/AdvReac Type Severity Reaction Status Date / Time latex Allergy Itching Verified 11/25/24 16:44 Physical Exam Vitals: Vital Signs Temp Pulse Pulse Resp BP Pulse Ox 11/27/24 09:26 80 11/27/24 09:13 76 11/27/24 07:18 97.9 F 70 16 131/78 94 L 11/27/24 02:00 97.7 F 68 12 124/74 93 L 11/26/24 19:57 98.2 F 83 12 114/65 93 L 11/26/24 19:16 88 11/26/24 19:10 86 11/26/24 18:25 93 L 11/26/24 15:39 86 11/26/24 15:28 88 11/26/24 12:24 97.4 F L 93 18 109/70 94 L 11/26/24 12:06 90 11/26/24 11:55 92 Intake and Output 11/26/24 11/27/24 11/27/24 22:59 06:59 14:59 Intake Total 480 540 240 Balance 480 540 240 Intake: Oral 480 540 240 Other: Voiding Method Bedside Commode # Voids 2 1 # Bowel Movements 1 Results 11/26/24 05:20 11/26/24 05:20 Cardiac Enzymes 11/27/24 Range/Units 09:09 Troponin I <0.012 (0.000-0.034) ng/mL Current Medications Generic Name Dose Route Start Last Admin Trade Name Freq PRN Reason Stop Dose Admin Albuterol/Ipratropium 3 ml 11/25/24 16:00 11/27/24 09:13 Ipratropium-Albuterol 3 Ml Neb INHALATION 3 ml RT-QID JORY Administration Albuterol/Ipratropium 3 ml 11/25/24 15:19 Ipratropium-Albuterol 3 Ml Neb INHALATION RT-Q4H PRN shortness of breath Budesonide/Formoterol Fumarate 2 puff 11/26/24 20:00 11/27/24 09:13 Symbicort 160-4.5 Mcg Inhaler INHALATION 2 puff RT-BID JORY Administration Famotidine 20 mg 11/26/24 09:00 11/27/24 08:44 Famotidine 20 Mg/2 Ml Vial IV 20 mg Q12HR JORY Administration Heparin Sodium (Porcine) 5,000 unit 11/25/24 22:00 11/27/24 08:44 Heparin Sodium,Porcine 5,000 Unit/Ml 1 Ml Vial SQ 5,000 unit Q12HR JORY Administration Sodium Chloride 1,000 mls @ 100 mls/hr 11/25/24 15:30 11/26/24 22:11 Saline 0.9% IV Not Given .Q10H JORY Methylprednisolone Sodium Succinate 60 mg 11/25/24 18:00 11/27/24 06:54 Methylprednisolone Sod Succi 125 Mg/2 Ml Vial IV 60 mg Q6HR JORY Administration Miscellaneous Information 1 each 11/25/24 15:19 Pneumonia Protocol Utilized 1 Each Misc PO ONCE PRN Per Protocol Intake and Output 11/26/24 11/27/24 11/27/24 22:59 06:59 14:59 Intake Total 480 540 240 Balance 480 540 240 Intake: Oral 480 540 240 Other: Voiding Method Bedside Commode # Voids 2 1 # Bowel Movements 1 11/26/24 05:20 11/26/24 05:20
--- NOTE | 2024-11-27 15:48 | P.PN ---
Progress Note - Text Interval History: Assessment and plan: Acute hypoxic respiratory failure: Acute COPD exacerbation Chronic and ongoing tobacco use: Chest pain: Atypical Multiple small consolidative opacities in left lower lobe scarring versus neoplasm Plan: Pulmonary consultedrecommended continue albuterol, Symbicort, prednisone taper, outpatient follow-up with repeat CT in 3 months, outpatient follow-up in office in 1 week Cardiology consulted for chest pain, likely atypical, troponin EKG negative so far, recommended repeat EKG and troponin Rest walk prior to discharge DVT prophylaxis: Subcutaneous heparin Monitor vital signs and labs Labs and medication were reviewed. Continue same treatment. Further recommendations as per clinical course of the patient PHYSICAL EXAMINATION: GENERAL: The patient is A&O x3, NAD HEENT: EOMI, Sclerae anicteric, Moist Mucous membranes Neck: Supple, Non tender, No JVD PULMONARY: Equal breath souds B/L, No wheezing, No crackles. CARDIOVASCULAR: S1, S2 present. No murmurs, rubs, or gallops. ABDOMEN: Soft, nontender, nondistended, normoactive bowel sounds. No guarding or rebound tenderness. MUSCULOSKELETAL: No edema, No cyanosis. No clubbing. Normal ROM. Intact peripheral pulses. NEUROLOGICAL: CN 2-12 grossly intact. No FND Skin: No Rash REVIEW OF SYSTEMS: CONSTITUTIONAL: No fever or chills. CARDIOVASCULAR: No chest pain, palpitations or syncope. PULMONARY: No shortness of breath, no cough, sore throat. GASTROINTESTINAL: No nausea, vomiting, diarrhea, abdominal pain. : No Dysuria, urgency, frequency. Extremities: No edema. NEUROLOGICAL: No headaches, no weakness, or numbness Dictation was produced using [employer] dictation software. please excuse any grammatical, word or spelling errors.
[2024-11-27] MEDS: FAMOTIDINE 20 MG TAB PO SCH (21:53)
[2024-11-28] MEDS: predniSONE 20 MG TAB PO SCH (08:24)
--- NOTE | 2024-11-28 12:05 | P.PN ---
Subjective Progress Note Date: 11/28/24 This is a 64-year-old female patient with no primary care provider, no home medications, chronic and ongoing tobacco dependence of 50 years who presented here to the emergency room yesterday with a 2-week history of flu-like symptoms. She also was having shortness of breath cough and congestion. X-ray shows a tiny left pleural effusion. There is an 8 mm nodule in the peripheral left lower lung. Right lung is clear. CT angiogram ruled out pulmonary embolism. There is multiple small focal opacities in the left lung base posteriorly which could represent infectious or neoplastic etiologies. White count 6.2. Hemoglobin 15.0. Platelets 228. Sodium 139. Potassium 4.3. Bicarb 25. BUN 13. Creatinine 0.8. Procalcitonin negative at 0.08. Viral screen was negative. She is seen today in consultation on the regular medical floor. She is currently sitting up in bed. Awake and alert in no acute distress. She is maintaining O2 saturations in the low 90s on 5 L/min per nasal cannula. She has been afebrile. Hemodynamically stable. The patient is seen today November 27, 2024 in follow-up on the regular medical floor. She is currently sitting up in bed. Awake and alert in no acute distr ess. She denies any worsening shortness of breath, cough or congestion. She is maintaining O2 saturations in the 90s on 4 L/min per nasal cannula. She is afebrile. Hemodynamically stable. Blood cultures revealed no growth. Sputum culture revealed no growth. Procalcitonin negative at 0.08. She is having some issues with vague chest discomfort. Troponin negative. Solu-Medrol. Heparin for DVT prophylaxis. Pepcid for GI prophylaxis. The patient is seen today November 28, 2024 in follow-up on the regular medical floor. She is awake and alert in no acute distress. Sitting up in bed. Main taining O2 saturations in the 90s on 4 L/min per nasal cannula. She is afebrile. Hemodynamically stable. Blood culture revealed no growth. Sputum culture revealed no growth. Troponins were negative x 3. She remains on DuoNeb inhalations, Symbicort, prednisone taper. Heparin for DVT prophylaxis. Pepcid for GI prophylaxis. Objective - Vital Signs Vital signs: Vital Signs Temp 98.1 F 11/28/24 07:32 Pulse 64 11/28/24 11:53 Resp 17 11/28/24 07:32 BP 149/81 11/28/24 07:32 Pulse Ox 91 L 11/28/24 08:47 FiO2 Intake & Output 11/27/24 11/28/24 11/28/24 18:59 06:59 18:59 Intake Total 1800 540 Balance 1800 540 Intake: Oral 1800 540 Other: Voiding Method Bedside Commode Bedside Commode Bedside Commode # Voids 5 1 # Bowel Movements 1 - Exam GENERAL EXAM: Alert, 64-year-old female, sitting up in bed, on 4 L nasal cannula , comfortable in no apparent distress. HEAD: Normocephalic. EYES: Normal reaction of pupils, equal size. NOSE: Clear with pink turbinates. THROAT: No erythema or exudates. NECK: No masses, no JVD. CHEST: No chest wall deformity. LUNGS: Equal air entry with few scattered rhonchi. CVS: S1 and S2 normal with no audible murmur, regular rhythm. ABDOMEN: No hepatosplenomegaly, normal bowel sounds, no guarding or rigidity. SPINE: No scoliosis or deformity SKIN: No rashes CENTRAL NERVOUS SYSTEM: No focal deficits, tone is normal in all 4 extremities. EXTREMITIES: There is no peripheral edema. No clubbing, no cyanosis. Peripheral pulses are intact. - Labs CBC & Chem 7: 11/26/24 05:20 11/26/24 05:20 Labs: Microbiology - Last 24 Hours (Table) 11/25/24 21:05 Gram Stain - Final Sputum Sputum Culture - Final 11/25/24 12:08 Blood Culture - Preliminary Blood Assessment and Plan Assessment: Acute hypoxic respiratory failure secondary to an acute exacerbation of COPD Chronic and ongoing tobacco dependence of 50 years Multiple small partially consolidative opacities in the subpleural parenchymal left lung base. Suspect scarring versus neoplasm Atypical chest pain, troponin negative x 3 Plan: The patient was seen and evaluated Labs and medications reviewed Evaluate for possible home oxygen Continue Symbicort, albuterol Complete a prednisone taper Again educated regarding complete smoking cessation Recommend 3-month follow-up CT scan regarding left base abnormalities Cleared for discharge once cleared by cardiology Follow up in our office in 1 week This patient was seen independently by the pulmonary nurse practitioner addressing pulmonary issues I have personally seen and examined the patient, performed the documentation and the assessment and plan as written. Number of minutes spent on the visit: 23 Dictation was produced using [employer] dictation software. Please excuse any grammatical, word or spelling errors.
--- NOTE | 2024-11-28 13:23 | P.PN ---
Subjective Progress Note Date: 11/28/24 Interval history: This is a pleasant 64 years old female with no significant past medical history. Presents because of worsening dyspnea over 2 weeks associated with cough with phlegm now becoming green but no significant chest pain She denies urinary symptoms and no abdominal pain vomiting. She has some diarrhea and decreased appetite over the last 2 weeks she was drinking only orange juice that is what she is having bowel movement and diarrhea about. No headache dizziness weakness numbness, no fall. She felt chills at home but no documented fever. She quit smoking about 2 weeks ago without specification how much she smoked no alcohol or illicit drugs. Known admission she was tachycardic with heart rate is 107 and tachypneic around 20, she was saturating 91 on 4 L oxygen via nasal cannula CBC is unremarkable except for hemoglobin elevated at 17, unremarkable BMP, liver enzymes, INR, troponin. My virus Please l D-dimer at 1.0. CT of the chest was negative for PE but showing left lung opacity with posteriorly mainly. Suspicious for pneumonia versus metastatic disease EKG showing sinus tachycardia at [address]-T changes, proBNP is 99. She started on Solu-Medrol and ceftriaxone and Zithromax and normal saline 100 mL/h 11/26 Patient feels better today. She is mildly tachypneic while she is at rest. Currently she is on 4 L oxygen via nasal cannula saturating above 91%. Tachycardia improved. Labs from today are pending. She is on maintenance of Solu-Medrol 60 mg ceftriaxone Zithromax and normal saline at 100 mL/h. Patient informed about the diagnosis of the left lateral pneumonia with the suspicion of cancer explained for him she verbalized understanding acceptance. Also patient emphasized to her the importance of outpatient follow-up with certified substance abuse counselor and she agrees. Repeat chest x-ray from today showing similar findings but some improvement in the area of consolidation. 11/27--patient was seen and examined today, afebrile, heart rate 80, respiratory rate 79, blood pressure 144/89, saturating 91% on 4 L. Patient reported chest pain earlier in the morning, atypical chest pain, evaluated by cardiology, recommended to trend EKG and troponin. Pulmonary following, recommended to continue inhalers, prednisone taper at discharge. 11/28--- patient was seen and examined today. Afebrile, heart rate 68, respiratory rate 17, blood pressure 149/81, saturating 95% on 4 L. Troponin yesterday remained unremarkable. Chest pain remained resolved. Rest walk showed 4 L oxygen at rest and exertion. Patient currently on DuoNeb, Symbicort. On prednisone. Awaiting home oxygen set up prior to discharge. Assessment and plan: Acute hypoxic respiratory failure: Acute COPD exacerbation Chronic and ongoing tobacco use: Chest pain: Atypical Multiple small consolidative opacities in left lower lobe scarring versus neoplasm Plan: Pulmonary consultedrecommended continue albuterol, Symbicort, prednisone taper, outpatient follow-up with repeat CT in 3 months, outpatient follow-up in office in 1 week Cardiology consulted for chest pain, likely atypical, troponin EKG negative so far, recommended repeat EKG and troponin Rest walk prior to discharge--- 4 L oxygen at rest and exertion DVT prophylaxis: Subcutaneous heparin Monitor vital signs and labs Labs and medication were reviewed. Continue same treatment. Further recommendations as per clinical course of the patient PHYSICAL EXAMINATION: GENERAL: The patient is A&O x3, NAD HEENT: EOMI, Sclerae anicteric, Moist Mucous membranes Neck: Supple, Non tender, No JVD PULMONARY: Equal breath souds B/L, No wheezing, No crackles. CARDIOVASCULAR: S1, S2 present. No murmurs, rubs, or gallops. ABDOMEN: Soft, nontender, nondistended, normoactive bowel sounds. No guarding or rebound tenderness. MUSCULOSKELETAL: No edema, No cyanosis. No clubbing. Normal ROM. Intact p eripheral pulses. NEUROLOGICAL: CN 2-12 grossly intact. No FND Skin: No Rash REVIEW OF SYSTEMS: CONSTITUTIONAL: No fever or chills. CARDIOVASCULAR: No chest pain, palpitations or syncope. PULMONARY: No shortness of breath, no cough, sore throat. GASTROINTESTINAL: No nausea, vomiting, diarrhea, abdominal pain. : No Dysuria, urgency, frequency. Extremities: No edema. NEUROLOGICAL: No headaches, no weakness, or numbness Dictation was produced using [employer] dictation software. please excuse any grammatical, word or spelling errors. Objective - Vital Signs Vital signs: Vital Signs Temp 98.1 F 11/28/24 07:32 Pulse 68 11/28/24 12:08 Resp 17 11/28/24 07:32 BP 149/81 11/28/24 07:32 Pulse Ox 91 L 11/28/24 08:47 FiO2 Intake & Output 11/27/24 11/28/24 11/28/24 18:59 06:59 18:59 Intake Total 1800 540 Balance 1800 540 Intake: Oral 1800 540 Other: Voiding Method Bedside Commode Bedside Commode Bedside Commode # Voids 5 1 # Bowel Movements 1 - Labs CBC & Chem 7: 11/26/24 05:20 11/26/24 05:20 Labs: Microbiology - Last 24 Hours (Table) 11/25/24 21:05 Gram Stain - Final Sputum Sputum Culture - Final 11/25/24 12:08 Blood Culture - Preliminary Blood
--- NOTE | 2024-11-28 16:38 | P.PN ---
Subjective Progress Note Date: 11/28/24 History of present illness: Patient is a pleasant 64-year-old female with no significant past medical hist ory who presented with complaints of worsening shortness of breath. 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 She admits she has not been to a doctor in the past 30 years. She does not take any medications at home. She said on November 13 she began having upper respiratory-like infections and was concerned she actually had COVID. The symptoms lasted for 2 weeks and have not been improving so therefore she presented to the emergency department. She then developed some chest pain last night and again this morning and therefore cardiology was consulted. Troponin was negative on admission and negative x 1 thus far today. BNP 99. EKG shows sinus bradycardia 58 bpm, left anterior fascicular block. Chest x-ray does show left basilar acute infiltration. Pulmonary is following for possible lung mass of the left lower lobe versus scarring and recommends repeat CAT scan in 3 months. This morning she has been having more chest pressure and tinges of pain. She did have a significant amount of gas earlier and felt better with this. However, chest pain and pressure is back. She describes it as a "bad heartburn "she denies having any prior cardiac workup. 11/29/2023 She reports that she is feeling better today. She does not had any further chest pain episodes. Troponins were negative. EKG has been stable. She is awaiting home oxygen to be set up prior to discharge. PHYSICAL EXAMINATION: This is a 64-year-old female in no apparent distress at the time of my examination. HEENT: Head is atraumatic, normocephalic. Pupils are equal, round. Sclerae anicteric. Conjunctivae are clear. Mucous membranes of the mouth are moist. Neck is supple. There is no jugular venous distention. No carotid bruit is heard. CHEST EXAMINATION: Lungs are clear to auscultation. No chest wall tenderness is noted on palpation or with deep breathing. HEART EXAMINATION: Heart regular rate and rhythm. S1, S2 heard. No murmurs, gallops or rub. ABDOMEN: Soft, nontender. Bowel sounds are heard. EXTREMITIES: 2+ peripheral pulses with no evidence of peripheral edema and no calf tenderness noted. NEUROLOGIC EXAMINATION: Patient is awake, alert and oriented x3. IMPRESSION AND PLAN: COPD exacerbation Tobacco use Consolidative opacities left lung base concerning for scarring versus neoplasm Chest pain, atypical PLAN: ACS ruled out. She is no longer having further chest pain episodes. Cezar mmend further workup as an outpatient with echo and stress test. Okay to discharge from a cardiac standpoint. Follow-up in 1-2 weeks in clinic. Cardiology to sign off please call with any questions or concerns. I am dictating on behalf of Dr. Abdoul Vick's history/physical and assessment/plan. Objective - Vital Signs Vital signs: Vital Signs Temp 97.8 F 11/28/24 13:56 Pulse 72 11/28/24 16:14 Resp 17 11/28/24 13:56 BP 123/70 11/28/24 13:56 Pulse Ox 92 L 11/28/24 13:56 FiO2 Intake & Output 11/27/24 11/28/24 11/28/24 18:59 06:59 18:59 Intake Total 1800 540 Balance 1800 540 Intake: Oral 1800 540 Other: Voiding Method Bedside Commode Bedside Commode Bedside Commode # Voids 5 1 # Bowel Movements 1 - Labs CBC & Chem 7: 11/26/24 05:20 11/26/24 05:20 Labs: Microbiology - Last 24 Hours (Table) 11/25/24 21:05 Gram Stain - Final Sputum Sputum Culture - Final 11/25/24 12:08 Blood Culture - Preliminary Blood
[2024-11-29 07:50] VITALS: RESP 16
[2024-11-29 11:32] VITALS: BP 152/81; TEMP 98.1
--- NOTE | 2024-11-29 13:31 | P.PN ---
Subjective Progress Note Date: 11/29/24 This is a 64-year-old female patient with no primary care provider, no home medications, chronic and ongoing tobacco dependence of 50 years who presented here to the emergency room yesterday with a 2-week history of flu-like symptoms. She also was having shortness of breath cough and congestion. X-ray shows a tiny left pleural effusion. There is an 8 mm nodule in the peripheral left lower lung. Right lung is clear. CT angiogram ruled out pulmonary embolism. There is multiple small focal opacities in the left lung base posteriorly which could represent infectious or neoplastic etiologies. White count 6.2. Hemoglobin 15.0. Platelets 228. Sodium 139. Potassium 4.3. Bicarb 25. BUN 13. Creatinine 0.8. Procalcitonin negative at 0.08. Viral screen was negative. She is seen today in consultation on the regular medical floor. She is currently sitting up in bed. Awake and alert in no acute distress. She is maintaining O2 saturations in the low 90s on 5 L/min per nasal cannula. She has been afebrile. Hemodynamically stable. The patient is seen today November 27, 2024 in follow-up on the regular medical floor. She is currently sitting up in bed. Awake and alert in no acute distr ess. She denies any worsening shortness of breath, cough or congestion. She is maintaining O2 saturations in the 90s on 4 L/min per nasal cannula. She is afebrile. Hemodynamically stable. Blood cultures revealed no growth. Sputum culture revealed no growth. Procalcitonin negative at 0.08. She is having some issues with vague chest discomfort. Troponin negative. Solu-Medrol. Heparin for DVT prophylaxis. Pepcid for GI prophylaxis. The patient is seen today November 28, 2024 in follow-up on the regular medical floor. She is awake and alert in no acute distress. Sitting up in bed. Main taining O2 saturations in the 90s on 4 L/min per nasal cannula. She is afebrile. Hemodynamically stable. Blood culture revealed no growth. Sputum culture revealed no growth. Troponins were negative x 3. She remains on DuoNeb inhalations, Symbicort, prednisone taper. Heparin for DVT prophylaxis. Pepcid for GI prophylaxis. The patient is seen today November 29, 2024 in follow-up on the regular medical floor. She is awake and alert in no acute distress. Sitting up in bed. Having breakfast. Denies any worsening shortness of breath, cough or congestion. Denies any chest pain currently. Maintaining good O2 saturations in the 90s on 4 L/min per nasal cannula. She is continued on DuoNeb inhalations, Symbicort, prednisone taper. Heparin for DVT prophylaxis. May require home oxygen. Her procalcitonin was negative at 0.08. Objective - Vital Signs Vital signs: Vital Signs Temp 98.1 F 11/29/24 11:31 Pulse 72 11/29/24 12:55 Resp 16 11/29/24 11:31 BP 152/81 11/29/24 11:31 Pulse Ox 91 L 11/29/24 11:31 FiO2 Intake & Output 11/28/24 11/29/24 11/29/24 18:59 06:59 18:59 Intake Total 600 840 480 Balance 600 840 480 Intake: Intake, IV Titration 600 Amount Sodium Chloride 0.9% 1, 600 000 ml @ 100 mls/hr IV . Q10H JORY Rx#:[id number] Oral 600 240 480 Other: Voiding Method Bedside Commode Bedside Commode Bedside Commode # Voids 4 1 - Exam GENERAL EXAM: Alert, very pleasant 64-year-old female, sitting up in bed, on 4 L nasal cannula, in no apparent distress. HEAD: Normocephalic. EYES: Normal reaction of pupils, equal size. NOSE: Clear with pink turbinates. THROAT: No erythema or exudates. NECK: No masses, no JVD. CHEST: No chest wall deformity. LUNGS: Equal air entry with few scattered rhonchi. CVS: S1 and S2 normal with no audible murmur, regular rhythm. ABDOMEN: No hepatosplenomegaly, normal bowel sounds, no guarding or rigidity. SPINE: No scoliosis or deformity SKIN: No rashes CENTRAL NERVOUS SYSTEM: No focal deficits, tone is normal in all 4 extremities. EXTREMITIES: There is no peripheral edema. No clubbing, no cyanosis. Peripheral pulses are intact. - Labs CBC & Chem 7: 11/26/24 05:20 11/26/24 05:20 Labs: Microbiology - Last 24 Hours (Table) 11/25/24 12:08 Blood Culture - Preliminary Blood 11/25/24 21:05 Gram Stain - Final Sputum Sputum Culture - Final Assessment and Plan Assessment: Acute hypoxic respiratory failure secondary to an acute exacerbation of COPD Chronic and ongoing tobacco dependence of 50 years Multiple small partially consolidative opacities in the subpleural parenchymal left lung base. Suspect scarring versus neoplasm Atypical chest pain, troponin negative x 3 Plan: The patient was seen and evaluated Medications reviewed Continue Symbicort, albuterol Complete a prednisone taper Educated regarding complete smoking cessation 3-month follow-up CT scan regarding left base abnormalities Home oxygen arranged through [facility] Follow up in our office in 1 week This patient was seen independently by the pulmonary nurse practitioner addressing pulmonary issues I have personally seen and examined the patient, performed the documentation and the assessment and plan as written. Number of minutes spent on the visit: 24 Dictation was produced using [employer] dictation software. Please excuse any grammatical, word or spelling errors.
[2024-11-29 16:41] VITALS: PULSE 70
== END 2024-11-29 18:31 | disposition home or self-care (01) | DRG 140 ==
LOC: EC 11:46 → 5NMEDONC 15:20
PROVIDERS: ADMIT Internal Medicine; ATTEND Internal Medicine
DX: J44.1 Chronic obstructive pulmonary disease with (acute) exacerbation (principal); J96.01 Acute respiratory failure with hypoxia; E86.0 Dehydration; I44.4 Left anterior fascicular block; R00.1 Bradycardia, unspecified; R91.8 Other nonspecific abnormal finding of lung field; Z86.16 Personal history of COVID-19; Z20.822 Contact with and (suspected) exposure to COVID-19; Z87.891 Personal history of nicotine dependence; Z79.899 Other long term (current) drug therapy; Z79.51 Long term (current) use of inhaled steroids
CPT/HCPCS: 36415; 71046; 71275; 80048; 80053; 83605; 83880; 84145; 84484; 85025; 85379; 85610; 85730; 87040; 87070; 87205; 87449; 87636; 93005; 94640; 94760; 96361; 96365; 96366; 96367; 96376; 99291

== ENCOUNTER → 2024-12-14 | Outpatient (CLI) | payer OTHER ==
--- NOTE | 2024-12-14 15:16 | BD ---
EXAMINATION TYPE: Axial Bone Density DATE OF EXAM: 12/14/2024 CLINICAL HISTORY: 64 years old Female. ICD-10 CODE: Z78.0 OSTEOPOROSIS SCR , Additional History: Height: 66 Weight: 203 FRAX RISK QUESTIONS: Secondary Osteoporosis: RISK FACTORS HISTORY OF: MEDICATIONS: EXAM MEASUREMENTS: Bone mineral densitometry was performed using the [employer] System. Bone mineral density as measured about the Lumbar spine is: ----- L1-L4(G/cm2): 1.387 T Score Values are as follows: ----- L1: 2.3 ----- L2: 0.8 ----- L3: 2.8 ----- L4: 1.0 ----- L1-L4: 1.7 Z Score Values are as follows: ----- L1: 2.8 ----- L2: 1.3 ----- L3: 3.3 ----- L4: 1.6 ----- L1-L4: 2.3 First dexa at [facility] Bone mineral density about the R hip (g/cm2): 1.095 Bone mineral density about the L hip (g/cm2): 1.225 T Score values are as follows: -----R Neck: 0.5 -----L Neck: 1.0 -----R Total: 0.7 -----L Total: 1.7 Z Score values are as follows: -----R Neck: 1.3 -----L Neck: 1.7 -----R Total: 1.1 -----L Total: 2.2 First dexa at [facility] FRAX%s: The graph provided illustrates a 5.7% chance for a major osteoporotic fx and a 0.1% chance fo r the hips probability for fx in 10 years time. IMPRESSION: Normal (Values between +1 and -1 indicate normal bone mass). Consider repeating this study in 5 year s or sooner if there is some new clinical indication. NOTE: T-SCORE=SD OF THE YOUNG ADULT MEAN. [facility], Workstation: [email or web address], 12/14/2024 3:14 PM
--- NOTE | 2024-12-14 15:27 | MM ---
Reason for Exam: Screening (asymptomatic). Patient History: Menarche at age 10. Patient has no children. Postmenopausal. Patient used Hormonal Contraceptives for 10 years. Risk Values: Martha 5 year model risk: 1.9%. NCI Lifetime model risk: 8.1%. Prior Study Comparison: No prior studies available for comparison. Tissue Density: The breasts are heterogeneously dense, which may obscure small masses. Findings: Analyzed By CAD. There is oval 7 mm circumscribed mass in the middle outer upper aspect right breast that warrants Further workup. Overall Assessment: Incomplete: need additional imaging evaluation, BI-RAD 0 Management: Diagnostic Breast Ultrasound of the right breast. Targeted ultrasound right breast. Patient should continue monthly self-breast exams. A clinical breast exam by your physician is recommended on an annual basis. This exam should not preclude additional follow-up of suspicious palpable abnormalities. Note on Martha scores and lifetime risk: 1. A Martha score greater than 3% is considered moderate risk. If this is the case, consider specialist referral to assess eligibility for a risk reducing agent. 2. If overall lifetime risk for the development of breast cancer is 20% or higher, the patient may qualify for future screening with alternating mammogram and breast MRI. [facility], , 12/14/2024 3:24 PM. Electronically signed and approved by: Emerson Alvraado M.D.
== END | disposition home or self-care (01) ==
LOC: RADBDWWP 14:36
PROVIDERS: ATTEND Internal Medicine
DX: Z12.31 Encounter for screening mammogram for malignant neoplasm of breast (principal); Z13.820 Encounter for screening for osteoporosis; Z78.0 Asymptomatic menopausal state; R92.333 Mammographic heterogeneous density, bilateral breasts; Z92.0 Personal history of contraception
CPT/HCPCS: 77063; 77067; 77080

== ENCOUNTER → 2024-12-17 | Outpatient (CLI) | payer OTHER ==
--- NOTE | 2024-12-17 13:35 | USB ---
Reason for Exam: Additional evaluation requested from abnormal screening. Patient History: Menarche at age 10. Patient has no children. Postmenopausal. Patient used Hormonal Contraceptives for 10 years. Risk Values: Martha 5 year model risk: 1.9%. NCI Lifetime model risk: 8.1%. Technique: Method: Targeted. Prior Study Comparison: 12/14/2024 Bilateral MG 3D screening mammo w/cad, [place]. Findings: The upper outer quadrant of the right breast, the axilla of the right breast and the retroareolar of the right breast were scanned. Targeted ultrasound shows no worrisome solid or cystic mass or abnormal fluid collection. Overall Assessment: Probably benign, BI-RAD 3 Management: Diagnostic Mammogram of the right breast in 6 months. Precautionary short-term follow-up right breast mammogram in 6 months time. A clinical breast exam by your physician is recommended on an annual basis and results should be correlated with mammographic findings. This exam should not preclude additional follow-up of suspicious palpable abnormalities. Results were given to the patient verbally at the time of exam. [facility], , 12/17/2024 1:32 PM. Electronically signed and approved by: Emerson Alvarado M.D.
== END | disposition home or self-care (01) ==
LOC: RADUSWWP 12:57
PROVIDERS: ATTEND Internal Medicine
DX: R92.8 Other abnormal and inconclusive findings on diagnostic imaging of breast (principal); Z78.0 Asymptomatic menopausal state; Z92.0 Personal history of contraception

== ENCOUNTER → 2025-01-05 | Outpatient (CLI) | payer OTHER ==
--- NOTE | 2025-01-05 15:40 | US ---
EXAMINATION TYPE: US kidneys/renal and bladder DATE OF EXAM: 01/05/2025 COMPARISON: NONE CLINICAL INDICATION: Female, 64 years old with history of N289 RENAL INSUFFICENCY; renal insufficency TECHNIQUE: Grayscale imaging of the bilateral kidneys and urinary bladder: FINDINGS: EXAM MEASUREMENTS: Right Kidney: 9.5 x 4.1 x 4.7 cm Left Kidney: 11.8 x 5.9 x 6.0 cm Right Kidney: No hydronephrosis or masses seen Left Kidney: No hydronephrosis or masses seen Bladder: limited due to not fully distended Bilateral Jets seen: only right jet seen Urinary bladder as visualized is anechoic. Posterior wall appears normal as visualized. IMPRESSION: 1. No acute ultrasound abnormality bilateral kidneys. 2. Limited evaluation of the urinary bladder. [facility], , 01/05/2025 3:38 PM
== END | disposition home or self-care (01) ==
LOC: RADUSWWP 14:51
PROVIDERS: ATTEND Internal Medicine
DX: N28.9 Disorder of kidney and ureter, unspecified (principal)
CPT/HCPCS: 76770

== ENCOUNTER 2025-02-01 11:06 | Observation (INO) | payer OTHER ==
--- NOTE | 2025-02-01 11:52 | ED ---
General Adult HPI - General Chief complaint: Shortness of Breath Stated complaint: SOB Time Seen by Provider: 02/01/25 11:17 Source: patient, EMS Mode of arrival: EMS - History of Present Illness Initial comments: 64 year old female presents for worsening SOB with a productive cough. She states she started off having a sore throat about 1 week ago and has now been bringing up yellow-green phlegm for the past few days and still having a dry cough. She has a medical history significant for pneumonia and COPD. Patient denies any chest pain no headache or dizziness denies any abdominal complaint. Patient states that she just feels like she has an upper respiratory infection. Denies any other associated symptoms. - Related Data Previous Rx's Medication Instructions Recorded Albuterol Inhaler [Ventolin Hfa 1 - 2 puff INHALATION Q6H PRN #1 11/29/24 Inhaler] each Budesonide-Formot 160-4.5 Mcg 2 puff INHALATION RT-BID 2 Days #1 11/29/24 [Symbicort 160-4.5 Mcg Inhaler] each predniSONE 10 mg PO DAILY #18 tab 11/29/24 Allergies Allergy/AdvReac Type Severity Reaction Status Date / Time latex Allergy Itching Verified 02/01/25 11:14 Review of Systems ROS Statement: Those systems with pertinent positive or pertinent negative responses have been documented in the HPI. ROS Other: All systems not noted in ROS Statement are negative. Past Medical History Past Medical History: Asthma, COPD Additional Past Medical History / Comment(s): skin cancer History of Any Multi-Drug Resistant Organisms: None Reported Past Surgical History: Cholecystectomy Additional Past Surgical History / Comment(s): skin cancer removed from R cheek. Past Anesthesia/Blood Transfusion Reactions: No Reported Reaction Past Psychological History: No Psychological Hx Reported Smoking Status: Former smoker Past Alcohol Use History: None Reported Past Drug Use History: Marijuana General Exam Limitations: no limitations General appearance: alert, in no apparent distress Head exam: Present: atraumatic, normocephalic, normal inspection Eye exam: Present: normal appearance, PERRL, EOMI. Absent: scleral icterus, conjunctival injection, periorbital swelling ENT exam: Present: normal exam, mucous membranes moist Neck exam: Present: normal inspection. Absent: tenderness, meningismus, lymphadenopathy Respiratory exam: Present: wheezes, rhonchi, decreased breath sounds. Absent: normal lung sounds bilaterally, respiratory distress, rales, stridor Cardiovascular Exam: Present: normal rhythm, tachycardia, normal heart sounds. Absent: systolic murmur, diastolic murmur, rubs, gallop, clicks GI/Abdominal exam: Present: soft, normal bowel sounds. Absent: distended, tenderness, guarding, rebound, rigid Course Vital Signs 02/01/25 02/01/25 02/01/25 11:08 13:15 13:18 Temperature 99.6 F Pulse Rate 102 H 94 86 Respiratory 22 18 Rate Blood Pressure 132/80 121/73 O2 Sat by Pulse 93 L 93 L Oximetry 02/01/25 02/01/25 13:26 14:35 Temperature Pulse Rate 89 Respiratory Rate Blood Pressure O2 Sat by Pulse 90 L Oximetry EKG Findings - EKG Comments: EKG Findings:: EKG performed at 12: 04 sinus rhythm rate of 97 AL 162 QRS 96 QT/QTc 355/409 - EKG Results: EKG: interpreted by ANASTACIA Medical Decision Making - Medical Decision Making Was pt. sent in by a medical professional or institution (, PA, UNDERCUTTER, urgent care, hospital, or intermediate...) When possible be specific @ -No Did you speak to anyone other than the patient for history (EMS, parent, family, police, friend...)? What history was obtained from this source @ -No Did you review nursing and triage notes (agree or disagree)? Why? @ -I reviewed and agree with nursing and triage notes Were old charts reviewed (outside hosp., previous admission, EMS record, old EKG, old radiological studies, urgent care reports/EKG's, intermediate records)? Report findings @ -No old charts were reviewed Differential Diagnosis (chest pain, altered mental status, abdominal pain women, abdominal pain men, vaginal bleeding, weakness, fever, dyspnea, syncope, headache, dizziness, GI bleed, back pain, seizure, CVA, palpatations, mental health, musculoskeletal)? @ -Differential Dyspnea: Coronary syndrome, arrhythmia, tamponade, asthma, COPD, pulmonary embolism, pneumonia, pneumothorax, pulmonary effusion, anaphylaxis, diabetic ketoacidosis, flailed chest, pulmonary contusion, diaphragmatic rupture, anemia, neuromus cular, this is not meant to be an all-inclusive list. EKG interpreted by me (3pts min.). @ -As above X-rays interpreted by me (1pt min.). @Chest ray shows mild atelectasis, possible early infiltrate CT interpreted by me (1pt min.). @ -None done U/S interpreted by me (1pt. min.). @ -None done What testing was considered but not performed or refused? (CT, X-rays, U/S, labs)? Why? @ -None What meds were considered but not given or refused? Why? @ -None Did you discuss the management of the patient with other professionals (professionals i.e. , PA, UNDERCUTTER, lab, RT, psych nurse, social service coordinator, glass loading equipment tender, teacher, food safety officer, rifle case repairer)? Give summary @ -Joaquin from [facility] physician group for admission Was smoking cessation discussed for >3mins.? @ -No Was critical care preformed (if so, how long)? @ -No Were there social determinants of health that impacted care today? How? (Homelessness, low income, unemployed, alcoholism, drug addiction, transportation, low edu. Level, literacy, decrease access to med. care, long-term, rehab)? @ -No Was there de-escalation of care discussed even if they declined (Discuss DNR or withdrawal of care, Hospice)? DNR status @ -No What co-morbidities impacted this encounter? (DM, HTN, Smoking, COPD, CAD, Cancer, CVA, ARF, Chemo, Hep., AIDS, mental health diagnosis, sleep apnea, morbid obesity)? @ -[COPD Was patient admitted / discharged? Hospital course, mention meds given and route, prescriptions, significant lab abnormalities, going to OR and other pert inent info. @ -Admitted patient presented for increasing dyspnea, cough and congestion, chest x-ray shows questionable early infiltrate patient does have mild hypoxia with ambulation 89 to 90%. Patient will be admitted for IV steroids, breathing treatments and pulmonary evaluation Undiagnosed new problem with uncertain prognosis? @ -No Drug Therapy requiring intensive monitoring for toxicity (Heparin, Nitro, Insulin, Cardizem)? @ -No Were any procedures done? @ -No Diagnosis/symptom? @ -COPD exacerbation Acute, or Chronic, or Acute on Chronic? @ -Acute Uncomplicated (without systemic symptoms) or Complicated (systemic symptoms)? @ -, Complicated Side effects of treatment? @ -No Exacerbation, Progression, or Severe Exacerbation? @ -Exacerbation Poses a threat to life or bodily function? How? (Chest pain, USA, NH, pneumonia, PE, COPD, DKA, ARF, appy, cholecystitis, CVA, Diverticulitis, Homicidal, Suicidal, threat to staff... and all critical care pts) @ -Yes COPD may lead to respiratory failure, arrest - Lab Data Result diagrams: 02/01/25 11:42 02/01/25 11:42 Lab Results 02/01/25 02/01/25 02/01/25 Range/Units 11:42 11:42 11:42 WBC 14.65 H (4.50-10.00) 10*3/uL RBC 4.67 (4.10-5.20) 10*6/uL Hgb 14.8 (12.0-15.0) g/dL Hct 42.8 (37.2-46.3) % MCV 91.6 (80.0-97.0) fL MCH 31.7 (27.0-32.0) pg MCHC 34.6 (32.0-37.0) g/dL Plt Count 265 (140-440) 10*3/uL MPV 9.6 (9.5-12.2) fL Immature Gran % (Auto) 0.3 % Neutrophils % 82.0 % Lymphocytes % 8.7 % Monocytes % 8.6 % Eosinophils % 0.1 % Basophils % 0.3 % Immature Gran # 0.04 (0.00-0.04) 10*3/uL Neutrophils # 12.01 H (1.80-7.70) 10*3/uL Lymphocytes # 1.28 (0.90-5.00) 10*3/uL Monocytes # 1.26 H (0.20-1.00) 10*3/uL Eosinophils # 0.01 L (0.04-0.35) 10*3/uL Basophils # 0.05 (0.00-0.10) 10*3/uL Sodium 135 L (137-145) mmol/L Potassium 4.2 (3.5-5.1) mmol/L Chloride 101 (98-107) mmol/L Carbon Dioxide 20 L (22-30) mmol/L Anion Gap 14 mmol/L BUN 17 (7-17) mg/dL Creatinine 0.99 (0.52-1.04) mg/dL Est GFR (CKD-EPI)AfAm 70 (>60 ml/min/1.73 sqM) Est GFR (CKD-EPI)NonAf 61 (>60 ml/min/1.73 sqM) Glucose 121 H (74-99) mg/dL Calcium 9.5 (8.4-10.2) mg/dL Total Bilirubin 1.0 (0.2-1.3) mg/dL AST 25 (14-36) U/L ALT 21 (4-34) U/L Alkaline Phosphatase 79 (38-126) U/L Total Protein 7.3 (6.3-8.2) g/dL Albumin 4.0 (3.5-5.0) g/dL Influenza Type A (PCR) Not Detected (Not Detectd) Influenza Type B (PCR) Not Detected (Not Detectd) RSV (PCR) Not Detected (Not Detectd) SARS-CoV-2 (PCR) Not Detected (Not Detectd) Disposition Clinical Impression: COPD exacerbation Disposition: ADMITTED IP TO THIS HOSP Condition: Fair Referrals: Vaibhav Clemons DO [Primary Care Provider] - 1-2 days Time of Disposition: 15:17
[2025-02-01 11:53] LABS: Basophils # (A) 0.05 10*3/uL (0.00-0.10); Basophils % (A) 0.3 %; Eosinophils # (A) 0.01 10*3/uL (0.04-0.35); Eosinophils % (A) 0.1 %; HCT 42.8 % (37.2-46.3); HGB 14.8 g/dL (12.0-15.0); Lymphocytes # (A) 1.28 10*3/uL (0.90-5.00); Lymphocytes % (A) 8.7 %; MCH 31.7 pg (27.0-32.0); MCHC 34.6 g/dL (32.0-37.0); MCV 91.6 fL (80.0-97.0); Mean Platelet Volume 9.6 fL (9.5-12.2); Monocytes # (A) 1.26 10*3/uL (0.20-1.00); Monocytes % (A) 8.6 %; Neutrophils # (A) 12.01 10*3/uL (1.80-7.70); Platelet Count 265 10*3/uL (140-440); RBC 4.67 10*6/uL (4.10-5.20); RDW 13.6 % (11.5-14.5); WBC 14.65 10*3/uL (4.50-10.00)
--- NOTE | 2025-02-01 12:05 | XR ---
EXAMINATION TYPE: XR chest 2V DATE OF EXAM: 02/01/2025 11:53 AM COMPARISON: 12/10/2024 CLINICAL INDICATION: Female, 64 years old with history of fever, sob, , TECHNIQUE: PA and lateral views FINDINGS: Heart normal size. Hyperinflation. Some patchy medial left basilar opacity. No other consolidation or pleural effusion. Stable calcified granuloma periphery of the left base. IMPRESSION: COPD with some patchy atelectasis versus infiltrate/pneumonia at the left base. [facility], Workstation: [facility], 02/01/2025 12:03 PM
[2025-02-01 12:13] LABS: ALT 21 U/L (4-34); AST 25 U/L (14-36); African American GFR (CKD) 70 (>60 ml/min/1.73 sqM); Alkaline Phosphatase 79 U/L (38-126); Anion Gap 14 mmol/L; Blood Urea Nitrogen 17 mg/dL (7-17); Calcium 9.5 mg/dL (8.4-10.2); Carbon Dioxide 20 mmol/L (22-30); Chloride 101 mmol/L (98-107); Glucose 121 mg/dL (74-99); Non-African American GFR(CKD) 61 (>60 ml/min/1.73 sqM); Potassium 4.2 mmol/L (3.5-5.1); Sodium 135 mmol/L (137-145); Total Protein 7.3 g/dL (6.3-8.2)
[2025-02-01 12:29] LABS: Influenza A Not Detected (Not Detectd); Influenza B Not Detected (Not Detectd); RSV Not Detected (Not Detectd)
[2025-02-01] MEDS: methylPREDNISolone SOD SUCCI 125 MG/2 ML VIAL IV STA (13:15)
[2025-02-01] MEDS: IPRATROPIUM-ALBUTEROL 3 ML NEB INHALATION STA (13:16)
[2025-02-01] MEDS ORDERED: NALOXONE 0.4 MG/ML 1 ML VIAL IVP PRN (15:17)
[2025-02-01] MEDS ORDERED: IPRATROPIUM-ALBUTEROL 3 ML NEB INHALATION PRN (15:17)
[2025-02-01] MEDS: IPRATROPIUM-ALBUTEROL 3 ML NEB INHALATION SCH (15:36)
[2025-02-01] MEDS: guaiFENesin-DM 600/30MG 1 EACH TAB.ER.12H PO SCH (16:32)
[2025-02-01] MEDS: methylPREDNISolone SOD SUCCI 125 MG/2 ML VIAL IV SCH (17:57)
--- NOTE | 2025-02-01 18:09 | P.HPIM ---
History of Present Illness H&P Date: 02/01/25 History of Presenting Illness: Patient is a pleasant 64-year-old female with a past medical history of COPD follows with Dr. Pride and previous nicotine dependence. She presented to the emergency department with a chief complaint of shortness of breath. Patient reports she began developing a sore throat and upper respiratory infection approximately 1 week ago and progressively worsened. She reports she was following up with her laboratory geneticist today and he became very alarmed secondary to her increased respiratory effort and called EMS to transfer her to the hospital. She reports productive cough of green to yellowish colored sputum, shortness of breath, wheezing, and "stuffiness". She denies having any headache, fevers, chills, diaphoresis, hemoptysis, chest pain, palpitations, nausea, vomiting, or experiencing any numbness/tingling/weakness/swelling in her extremities. She reports recent diagnosis of COPD back in November and follows with junior graphic designer Dr. Ramsey. Upon arrival to facility, patient underwent evaluation in the emergency department. Vital signs upon arrival show blood pressure 132/82, heart rate 102, respiratory rate 22, temp 99.6 F, and SpO2 of 93% on 2 L O2 via nasal cannula. Per ED provider, oxygen saturations decreased down to 88 to 89% with minimal exertion. EKG completed showing normal sinus rhythm at 97 bpm with T wave inversion in inferior leads. Chest x-ray completed consistent with COPD and patchy atelectasis versus infiltrate at left lung base. Labs completed and reviewed. CBC showing leukocytosis with WBC count of 14.65, neutrophils of 12.01, monocytes of 1.26, and eosinophils of 0.01. BMP showing hypocarbia with bicarb of 20 and elevated anion gap of 14. Blood glucose was 121. Liver profile unremarkable. Cepheid 4 Plex viral panel negative for influenza A, influenza B, RSV, and COVID. Patient given Solu-Medrol 125 mg IVP x 1 dose along with nebulizer treatment and admitted under services with consultation to pulmonology. Review of systems: Pertinent positives and negatives as discussed in HPI, a complete review of systems was performed and all other systems are negative. Physical exam: Vital signs reviewed and stable. General: Nontoxic, no distress and appears stated age. Derm: Skin warm and dry, normal coloration for ethnicity. Head: Atraumatic, normocephalic and symmetric. Eyes: EOM's intact, no lid lag, and anicteric sclera Mouth: no lip lesions, mucus membranes moist Cardiovascular: regular rate and rhythm with normal S1S2, no murmur, positive posterior tibial pulses bilaterally, and cap refill < 2 seconds. Lungs: Respirations even, regular, and unlabored on 2 L O2 via nasal cannula. Lungs diminished with diffuse bilateral expiratory wheezes throughout. No rho nchi, rales, or crackles noted. Mild conversational dyspnea noted after approximately 5 words Abdominal: soft, nontender to palpation, no guarding, no appreciable organomegaly Ext: ROM intact. No gross muscle atrophy, no edema, no contractures Neuro: Speech clear, face symmetrical and CN II-XII grossly intact with no noted focal neuro deficits Psych: Alert and oriented to person, place, time, and situation. Appropriate and pleasant affect. Assessment and Plan of Care: Acute hypoxic respiratory failure COPD exacerbation, concerns of possible left lower lobe pneumonia Leukocytosis -Consult to Pulmonology -Oxygenation to be administered and titrated as needed to maintain SPO2 equal to or greater than 92% -Telemetry monitoring. -Monitor pulse-oximetry -Duonebs scheduled 4 times daily and as needed for SOB and/or wheezing -Incentive Spirometry -Steroids: 60 mg IVP every 6 hours -Antibiotics: Empirically started on Augmentin 875/125 mg tablets every 12 hours -Follow-up on procalcitonin results Data and imaging reviewed: -As stated above in HPI The patient is admitted with an anticipated less than 2 midnight stay for evaluation of shortness of breath secondary to COPD exacerbation CODE STATUS: Full code DVT prophylaxis: Lovenox Discussed with: Patient, RN, and ED provider Anticipated discharge date: 24 to [address]: Home Patient was seen independently by Nurse Practitioner. This document was prepared using [employer] dictation software. Please allow for errors in archival records clerk while rare they do occur. Joaquin Damon NP rendered care for this patient independently, reviewed the findi ngs and plan as documented in the note above and agree with plan. I did not physically speak with or examine the patient on this date. Past Medical History Past Medical History: Asthma, COPD Additional Past Medical History / Comment(s): skin cancer History of Any Multi-Drug Resistant Organisms: None Reported Past Surgical History: Cholecystectomy Additional Past Surgical History / Comment(s): skin cancer removed from R cheek. Past Anesthesia/Blood Transfusion Reactions: No Reported Reaction Past Psychological History: No Psychological Hx Reported Smoking Status: Former smoker Past Alcohol Use History: None Reported Past Drug Use History: Marijuana Medications and Allergies Home Medications Medication Instructions Recorded Confirmed Type Budesonide-Formot 160-4.5 Mcg 2 puff INHALATION RT-BID 2 Days #1 11/29/24 02/01/25 Rx [Symbicort 160-4.5 Mcg Inhaler] each Albuterol Inhaler [Ventolin Hfa 2 puff INHALATION RT-QID PRN 02/01/25 02/01/25 History Inhaler] Hydrocortisone Oint 1 applic TOPICAL HS 02/01/25 02/01/25 History [Hydrocortisone 2.5% Oint] guaiFENesin-DM 600/30MG [Mucinex 1 tab PO Q12H 02/01/25 02/01/25 History Dm] Allergies Allergy/AdvReac Type Severity Reaction Status Date / Time latex Allergy Itching Verified 02/01/25 16:17 Physical Exam Vitals: Vital Signs Temp Pulse Resp BP Pulse Ox 02/01/25 15:45 85 02/01/25 15:38 84 02/01/25 14:35 90 L 02/01/25 13:26 89 02/01/25 13:18 86 02/01/25 13:15 94 18 121/73 93 L 02/01/25 11:08 99.6 F 102 H 22 132/80 93 L Intake and Output 02/01/25 02/01/25 02/01/25 06:59 14:59 22:59 Other: Weight 99.79 kg Results CBC & Chem 7: 02/01/25 11:42 02/01/25 11:42 Labs: Abnormal Lab Results - Last 24 Hours (Table) 02/01/25 02/01/25 Range/Units 11:42 11:42 WBC 14.65 H (4.50-10.00) 10*3/uL Neutrophils # 12.01 H (1.80-7.70) 10*3/uL Monocytes # 1.26 H (0.20-1.00) 10*3/uL Eosinophils # 0.01 L (0.04-0.35) 10*3/uL Sodium 135 L (137-145) mmol/L Carbon Dioxide 20 L (22-30) mmol/L Glucose 121 H (74-99) mg/dL
[2025-02-01] MEDS: SYMBICORT 160-4.5 MCG INHALER INHALATION SCH (19:18)
[2025-02-01] MEDS: AMOXIC-POT CLAV 875-125MG 1 EACH TAB PO SCH (21:40)
--- NOTE | 2025-02-02 00:38 | P.CNPUL ---
History of Present Illness Consult date: 02/02/25 Requesting physician: Jan Mann Reason for consult: COPD Chief complaint: Shortness of breath History of present illness: Patient is a 64-year-old female with past medical history significant for COPD. Recently, established a primary care provider, Dr. Clemons. She also follows in the pulmonary office with Dr. Pride. She has severe COPD with an FEV1 47% of predicted. Normally, maintained on a combination of Symbicort inhaler as well as as needed albuterol HFA inhaler. Formerly a heavy tobacco user, she quit smoking in October, after a hospitalization for COPD. Patient was sent in via EMS by her inorganic chemist after noted to be in some respiratory distress and hypoxic while at the office. 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 On arrival, reportedly found to be wheezing. Her COPD was felt to be active. She was placed on 2 L/min nasal cannula. Loaded with IV Solu-Medrol and given multiple DuoNeb treatments. Workup in the emergency department including a chest x-ray showing hyperinflation with persistent subtle patchy left basilar infiltrates. Chest CTA done during her previous hospitalization in October demonstrated multiple small focal opacities in the left lung base posteriorly which concerning for infectious versus neoplastic process. Dr. Ramsey recommended follow-up chest CT in 3 to 4 months. She does reportedly have a follow-up appointment scheduled in February. Remaining workup including CBC with a WBC count of 14.7, CBC 14.8, platelets 265. CMP: Sodium 135, potassium 4.2, chloride 101, serum bicarb 20, BUN 17, creatinine 0.99, glucose 121. LFTs not elevated. Procalcitonin level 0.26. Viral 4 Plex negative for influenza A/B, RSV, COVID. Patient currently being evaluated on the general medical floor. She is resting comfortably on 2 L/min nasal cannula. States she was previously discharged on supplemental oxygen in October, but has not needed this lately. She developed URI-like symptoms approximately 1 week ago. States her boyfriend was recently sick with a cold after coming home from a fishing trip. Subsequently, she developed nasal congestion, sore throat, increased cough with green sputum production. Denies any fever/chills. Denies nausea, vomiting, diarrhea. Denies any recent outpatient evaluation or treatment with antibiotics. Denies any chest pain, heart palpitations, lightheadedness or syncopal events, orthopnea, lower extremity edema. Current vital signs: Temperature 97.8 F, heart rate 95 bpm, blood pressure 147/80 mmHg, nontachypneic, SpO2 recorded at 94% on 2/min nasal cannula. Review of Systems REVIEW OF SYSTEMS: CONSTITUTIONAL: Denies any recent significant weight loss or weight gain. EYES: Denies change in vision. EARS, NOSE, MOUTH, THROAT: See HPI CARDIOVASCULAR: Denies chest pain, palpitations or syncopal episodes. RESPIRATORY: See HPI GASTROINTESTINAL: Denies change in appetite, abdominal pain, nausea and vomiting, or diarrhea GENITOURINARY: Denies hematuria, denies infections. MUSKULOSKELETAL: Denies pain, denies swelling. INTEGUMENTARY: Denies rash, denies eczema. NEUROLOGICAL: Denies recent memory loss, no recent seizure activity. PSYCHIATRIC: Denies anxiety, denies depression. HEMATOLOGIC/LYMPHATIC: Denies anemia, denies enlarged lymph node Past Medical History Past Medical History: Asthma, COPD, Pneumonia Additional Past Medical History / Comment(s): skin cancer History of Any Multi-Drug Resistant Organisms: None Reported Past Surgical History: Cholecystectomy Additional Past Surgical History / Comment(s): skin cancer removed from R cheek. Past Anesthesia/Blood Transfusion Reactions: No Reported Reaction Past Psychological History: No Psychological Hx Reported Smoking Status: Former smoker Past Alcohol Use History: None Reported Past Drug Use History: Marijuana Additional Drug Use History / Comment(s): Patient states stopped smoking Oct 2024 - Past Family History Mother Family Medical History: Cancer Additional Family Medical History / Comment(s): Lung cancer Father Additional Family Medical History / Comment(s): Lung cancer Medications and Allergies Home Medications Medication Instructions Recorded Confirmed Type Budesonide-Formot 160-4.5 Mcg 2 puff INHALATION RT-BID 2 Days #1 11/29/24 02/01/25 Rx [Symbicort 160-4.5 Mcg Inhaler] each Albuterol Inhaler [Ventolin Hfa 2 puff INHALATION RT-QID PRN 02/01/25 02/01/25 History Inhaler] Hydrocortisone Oint 1 applic TOPICAL HS 02/01/25 02/01/25 History [Hydrocortisone 2.5% Oint] guaiFENesin-DM 600/30MG [Mucinex 1 tab PO Q12H 02/01/25 02/01/25 History Dm] Allergies Allergy/AdvReac Type Severity Reaction Status Date / Time latex Allergy Itching Verified 02/01/25 16:17 Physical Exam Vitals: Vital Signs Temp Pulse Pulse Resp BP BP Pulse Ox 02/01/25 20:00 97.8 F 95 20 147/80 94 L 02/01/25 19:47 80 02/01/25 19:42 81 02/01/25 18:26 99.1 F 77 18 132/60 95 02/01/25 15:45 85 02/01/25 15:38 84 02/01/25 14:35 90 L 02/01/25 13:26 89 02/01/25 13:18 86 02/01/25 13:15 94 18 121/73 93 L 02/01/25 11:08 99.6 F 102 H 22 132/80 93 L Intake and Output 02/01/25 02/01/25 02/02/25 14:59 22:59 06:59 Other: Weight 99.79 kg 99.79 kg GENERAL EXAM: Alert, 64-year-old female, comfortable in no apparent distress. HEAD: Normocephalic and atraumatic. Bilateral maxillary area incision sites, approximated EYES: Normal reaction of pupils, equal size. NOSE: Clear with pink turbinates. THROAT: No erythema or exudates. NECK: No masses, no JVD. CHEST: No chest wall deformity. LUNGS: Equal air entry with no crackles, wheeze, rhonchi or dullness. On 2 L/min nasal cannula. No conversational dyspnea or accessory muscle use.. CVS: S1 and S2 normal with no audible murmur, regular rhythm. No extra heart sounds ABDOMEN: No hepatosplenomegaly, active bowel sounds, no guarding or rigidity. SPINE: No scoliosis or deformity SKIN: No rashes CENTRAL NERVOUS SYSTEM: No focal deficits, tone is normal in all 4 extremities. EXTREMITIES: There is no peripheral edema, clubbing, or cyanosis. Peripheral pulses are intact. Results - Laboratory Findings CBC and BMP: 02/01/25 11:42 02/01/25 11:42 Abnormal lab findings: Abnormal Labs 02/01/25 02/01/25 11:42 11:42 WBC 14.65 H Neutrophils # 12.01 H Monocytes # 1.26 H Eosinophils # 0.01 L Sodium 135 L Carbon Dioxide 20 L Glucose 121 H - Diagnostic Findings Chest x-ray: image reviewed Assessment and Plan Assessment: Acute COPD exacerbation Acute hypoxemic respiratory failure, currently on 2 L/min nasal cannula, secondary to above; chest x-ray continues to show subtle left basilar patchy airspace opacities. Acute leukocytosis Severe chronic obstructive pulmonary disease, with an FEV1 47% of predicted, normally maintained on a combination of Symbicort maintenance inhaler as well as albuterol HFA inhaler as needed Previous hospitalization for left lower lobe pneumonia, chest CTA done during her hospitalization in October demonstrated multiple small scheduled focal opacities in the left lung base posteriorly which concerning for infectious versus neoplastic process. Dr. Ramsey recommended follow-up chest CT in 3 to 4 months. She does reportedly have a follow-up appointment scheduled in February. Former tobacco dependence History of squamous cell skin cancer, previously excised Plan: Patient's medications, labs, chest x-ray reviewed Continue supplemental oxygen to maintain oxygen saturation of 92% or greater Continue combination of bronchodilators, Symbicort inhaler, and IV Solu-Medrol Previously started on empiric Augmentin Procalcitonin level 0.26 Viral 4 Plex negative for influenza A/B, RSV, COVID Patient encouraged to keep her follow-up appointment with Dr. Ramsey on hospital discharge We will continue to follow while inpatient I have personally seen and examined the patient, performed the documentation and the assessment and plan as written. Number of minutes spent on the visit:20 This dictation was produced using [employer] dictation software please excuse grammatical errors Time with Patient: Greater than 30
[2025-02-02 07:33] VITALS: TEMP 97.7
[2025-02-02] MEDS: ENOXAPARIN 40 MG/0.4 ML SYRINGE SQ SCH (08:21)
[2025-02-02 14:34] VITALS: BP 123/65; RESP 17
[2025-02-02 16:21] VITALS: PULSE 86
--- NOTE | 2025-02-02 17:42 | P.DS ---
Providers Date of admission: 02/01/25 15:15 Expected date of discharge: 02/02/25 Attending physician: Poornima Lewis MD Consults: 02/01/25 15:17 Consult Physician Routine Consulting Provider: Sergio Jaeger Consult Reason/Comments: COPD Do you want consulting provider notified?: Yes Primary care physician: Vaibhav Clemons [place] Hospital Course: Discharge Diagnosis: Acute hypoxic respiratory failure COPD exacerbation Leukocytosis Hospital Course: Patient is a pleasant 64-year-old female with a past medical history of COPD follows with Dr. Pride and previous nicotine dependence. She presented to the emergency department with a chief complaint of shortness of breath. Patient reports she began developing a sore throat and upper respiratory infection approximately 1 week ago and progressively worsened. 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 She reports productive cough of green to yellowish colored sputum, shortness of breath, wheezing, and "stuffiness". She denies having any headache, fevers, chills, diaphoresis, hemoptysis, chest pain, palpitations, nausea, vomiting, or experiencing any numbness/tingling/weakness/swelling in her extremities. She reports recent diagnosis of COPD back in November and follows with fuel cell binder Dr. Ramsey. Upon arrival to facility, patient underwent evaluation in the emergency department. Vital signs upon arrival show blood pressure 132/82, heart rate 102, respiratory rate 22, temp 99.6 F, and SpO2 of 93% on 2 L O2 via nasal cannula. Per ED provider, oxygen saturations decreased down to 88 to 89% with minimal exertion. EKG completed showing normal sinus rhythm at 97 bpm with T wave inversion in inferior leads. Chest x-ray completed consistent with COPD and patchy atelectasis versus infiltrate at left lung base. Labs completed and reviewed. CBC showing leukocytosis with WBC count of 14.65, neutrophils of 12.01, monocytes of 1.26, and eosinophils of 0.01. BMP showing hypocarbia with bicarb of 20 and elevated anion gap of 14. Blood glucose was 121. Liver profile unremarkable. Cepheid 4 Plex viral panel negative for influenza A, influenza B, RSV, and COVID. Patient given Solu-Medrol 125 mg IVP x 1 dose along with nebulizer treatment and admitted under services with consultation to pulmonology. Patient was started on IV steroids, scheduled nebulizer treatments and as needed. She reports feeling great and wanting to go home. Discussed with fuel cell binder, patient cleared from their perspective for discharge. She was discharged home on prednisone 50 mg daily x 5 days. Patient will need to follow-up outpatient with PCP in 1 to 2 days. Home oxygen evaluation was completed and patient does require home oxygen and discharged home on 3 L continuous home oxygen. Patient instructed to wear this oxygen at all times including while showering until follow-up with her fuel cell binder, Dr. Pride in his office in 1 week Physical exam: Vital signs reviewed and stable. General: Nontoxic, no distress and appears stated age. Derm: Skin warm and dry, normal coloration for ethnicity. Head: Atraumatic, normocephalic and symmetric. Eyes: EOM's intact, no lid lag, and anicteric sclera Mouth: no lip lesions, mucus membranes moist Cardiovascular: regular rate and rhythm with normal S1S2, no murmur, positive posterior tibial pulses bilaterally, and cap refill < 2 seconds. Lungs: Respirations even, regular, and unlabored on 2 L O2 via nasal cannula. Lungs diminished with diffuse bilateral expiratory wheezes throughout. No rhonchi, rales, or crackles noted. Mild conversational dyspnea noted after approximately 5 words Abdominal: soft, nontender to palpation, no guarding, no appreciable organomegaly Ext: ROM intact. No gross muscle atrophy, no edema, no contractures Neuro: Speech clear, face symmetrical and CN II-XII grossly intact with no noted focal neuro deficits Psych: Alert and oriented to person, place, time, and situation. Appropriate and pleasant affect. A total of 35 minutes of time were spent preparing this complex discharge summary. Pt was discharged on 02/02/2025 at 5:33 PM. Patient was seen independently by Nurse Practitioner. This document was prepared using [employer] dictation software. Please allow for errors in mortician investigator while rare they do occur. Joaquin Damon NP rendered care for this patient independently, reviewed the findings and plan as documented in the note above. I did not physically speak with or examine the patient on this date. Patient Condition at Discharge: Stable Plan - Discharge Summary Discharge Rx Participant: No New Discharge Prescriptions: New predniSONE 50 mg PO DAILY 5 Days #5 tab Continue Hydrocortisone Oint [Hydrocortisone 2.5% Oint] 1 applic TOPICAL HS Albuterol Inhaler [Ventolin Hfa Inhaler] 2 puff INHALATION RT-QID PRN PRN Reason: Shortness Of Breath Budesonide-Formot 160-4.5 Mcg [Symbicort 160-4.5 Mcg Inhaler] 2 puff INHALATION RT-BID 2 Days #1 each guaiFENesin-DM 600/30MG [Mucinex Dm] 1 tab PO Q12H Discharge Medication List Budesonide-Formot 160-4.5 Mcg [Symbicort 160-4.5 Mcg Inhaler] 2 puff INHALATION RT-BID 2 Days #1 each 11/29/24 [Rx] Albuterol Inhaler [Ventolin Hfa Inhaler] 2 puff INHALATION RT-QID PRN 02/01/25 [History] Hydrocortisone Oint [Hydrocortisone 2.5% Oint] 1 applic TOPICAL HS 02/01/25 [History] guaiFENesin-DM 600/30MG [Mucinex Dm] 1 tab PO Q12H 02/01/25 [History] predniSONE 50 mg PO DAILY 5 Days #5 tab 02/02/25 [Rx] Follow up Appointment(s)/Referral(s): Syeda Pride MD [STAFF PHYSICIAN] - 1 Week Equipment & Supplies,[facility] [NON-STAFF] - As Needed Vaibhav Clemons DO [Primary Care Provider] - 1-2 days Patient Instructions/Handouts: Using Oxygen at Home (DC), COPD (Chronic Obstructive Pulmonary Disease) (DC), Chronic Lung Disease and Infection Prevention (DC) Activity/Diet/Wound Care/Special Instructions: Activity: As tolerated. Take breaks as needed. Diet: Heart healthy and carb consistent diet. Avoid salts, or foods with hidden salts such as canned or boxed foods and frozen dinners. Extra salt makes your heart work harder and traps the fluid in your body for longer. Special Instructions: Take all of your medications as directed and remember to keep all of your doctor's appointments and follow-up as needed. Strongly recommend continued cessation of smoking cigarettes and strongly recommend avoidance of all inhalants including marijuana. Thank you for allowing us to participate in your care, it was truly a pleasure having you for our patient!!! Discharge Disposition: HOME SELF-CARE
== END 2025-02-02 17:47 | disposition home or self-care (01) ==
LOC: EC 11:06 → 6NMEDSUR 15:14 → INTOOBSV 15:15 → OBSVTOIN 15:15 → 6NMEDSUR 17:52
PROVIDERS: ADMIT Internal Medicine; ATTEND Internal Medicine
DX: J44.1 Chronic obstructive pulmonary disease with (acute) exacerbation (principal); J96.01 Acute respiratory failure with hypoxia; D72.829 Elevated white blood cell count, unspecified; J44.89 Other specified chronic obstructive pulmonary disease; Z85.828 Personal history of other malignant neoplasm of skin; Z87.891 Personal history of nicotine dependence; Z79.51 Long term (current) use of inhaled steroids; Z79.52 Long term (current) use of systemic steroids; Z79.899 Other long term (current) drug therapy; Z91.040 Latex allergy status
CPT/HCPCS: 96376; 96372; 96374 ×2; 99285; 36415; 94640 ×4; 94760; 93005; 80053; 85025; 84145; 87636; 71046; G0378 ×2; J1650; J2919 ×2

== ENCOUNTER → 2025-04-08 | Outpatient (CLI) | payer OTHER ==
--- NOTE | 2025-04-08 13:16 | CT ---
EXAMINATION TYPE: CT chest w con DATE OF EXAM: 04/08/2025 12:59 PM COMPARISON: 11/25/2024 CLINICAL INDICATION: Female, 64 years old with history of R91.8 OTHER NONSPECIFIC ABNORMAL FINDING OF LUNG F, Pulmonary nodule check up TECHNIQUE: Axial images were obtained at 5 mm thick sections. Reconstructed images are reviewed on [email or web address] computer in the coronal plane. Contrast used:100 mL of Isovue 300 with IV Contrast, (none if empty) Oral contrast used: (none if empty) CT DLP: 694 mGycm, Automated exposure control for dose reduction was used. FINDINGS: Thyroid is heterogenous. Follow-up with ultrasound is recommended. No suspicious lung nodules are identified. There is a calcified nodule in the left costophrenic angle sulcus. Previous densities along the lateral left mid to lower lung field have resolved. Some increa sing linear densities in the posterior medial right lung base may be some atelectasis increasing from comparison. Some atelectasis may be within the anterior lingula at the lung base. There is some mil d infiltrate along the lateral left lung may be some atelectasis. No enlarged mediastinal or hilar adenopathy is evident. Scattered small lymph nodes are within the m ediastinum and axillary regions. The ascending aorta diameter at the level of the main pulmonary art nena is 3.3 cm. The main pulmonary artery diameter at the bifurcation is 3.2 cm. Mild coronary artery calcifications present. Limited CT sections are obtained through the upper abdomen. There is 1.7 cm ill-defined hypodensity within the tail of the pancreas. Additional workup is recomme nded. Neoplasm is not excluded. IMPRESSION: 1. 1.7 cm ill-defined hypodensity within the tail of the pancreas. Additional workup for neoplasm is recommended. MRI with contrast or CT with pancreas protocol with contrast can be utilized. 2. No suspicious nodules within the lung rebollar. Prior opacities have largely resolved. New opacities are present which may be on the basis of atelectasis. Continued monitoring can be performed. A [place] level critical message alert has been initiated for Syeda Pride MD via the [facility] Critical Results System on 04/08/2025 1:13 PM. This message alert has been sent to Syeda Pride MD via the preferences provided by the clinician for the receipt of Radiology Critical Findings. Message ID [id number]. [facility], , 04/08/2025 1:13 PM
== END | disposition home or self-care (01) ==
LOC: RADCTMAIN 12:28
PROVIDERS: ATTEND Internal Medicine
DX: R91.8 Other nonspecific abnormal finding of lung field (principal)
CPT/HCPCS: 71260; Q9967

== ENCOUNTER → 2025-04-19 | Outpatient (CLI) | payer OTHER ==
--- NOTE | 2025-04-20 07:47 | MR ---
EXAMINATION TYPE: MR pancreas wo/w con DATE OF EXAM: 04/19/2025 9:59 PM COMPARISON: 04/08/2025. CLINICAL INDICATION: Female, 64 years old with history of K86.89; PHH, Abnormal CT/US, Hx Gallbladder removed, TECHNIQUE: Multiplanar multi-sequence imaging was performed without contrast. Post contrast imaging was performed. Post IV contrast subtraction images were also submitted for review. IV Contrast: 10.5 mL Gadobutrol FINDINGS: LOWER CHEST: No gross irregularity. ABDOMEN Liver: No evidence for hepatic steatosis or cirrhosis. Signal dropout on chemical shift in phase imag ing. Gallbladder and Bile ducts: No evidence for ductal dilation, or biliary stricture or evidence of chol edocholithiasis. The gallbladder is surgically absent. Pancreas: No ductal dilation. No evidence for solid mass. There is a 15 mm high T2 signal cystic lesi on within the pancreatic tail. No abnormal postcontrast enhancement. No dilated ducts. No mural nodul arity. Spleen: Normal for size. Signal dropout on chemical shift in phase imaging. Adrenal glands: Unremarkable. Kidneys: No evidence for obstructive uropathy. No suspicious renal masses. Simple appearing high T2 s ignal left renal cortical cyst measuring 11 mm. Stomach and Bowel: No evidence for bowel wall thickening or evidence for obstruction. Scattered colon ic diverticula. Redundant descending colon/transverse colon. Retroperitoneum/Peritoneum: No evidence of pneumoperitoneum or free fluid. Vasculature: No aortic aneurysm. Musculoskeletal: The osseous structures appear intact. Lymph Nodes: No gross evidence for lymphadenopathy. Abdominal wall: Unremarkable. Limited pelvis: Fibroid changes posterior uterus. IMPRESSION: 1. Pancreatic tail 15 mm cystic lesion possibly representing sequela of prior pancreatitis versus si de branch intraductal mucinous neoplasm versus other cystic neoplasms. Attention on follow-up imaging in one year with MRI MRCP with contrast to ensure stability. 2. Left Bosniak type I equivalent renal cyst. 3. Iron deposition in the liver and spleen. 4. Colonic diverticulosis. 5. Fibroid uterus. [facility], , 04/20/2025 7:45 AM
== END | disposition home or self-care (01) ==
LOC: RADMRIMAIN 20:45
PROVIDERS: ATTEND Internal Medicine
DX: K86.89 Other specified diseases of pancreas (principal); D25.9 Leiomyoma of uterus, unspecified; K57.30 Diverticulosis of large intestine without perforation or abscess without bleeding; N28.1 Cyst of kidney, acquired; Z87.59 Personal history of other complications of pregnancy, childbirth and the puerperium; Z90.49 Acquired absence of other specified parts of digestive tract; E83.118 Other hemochromatosis
CPT/HCPCS: 74183; A9585